=== PATIENT | female | born 2000 | race Two or more races ===

== ENCOUNTER → 2024-10-20 07:47 | Outpatient (BNVA) | payer OTHER, SELFPAY | PROVIDERS: Visit Provider Physician Assistant Surgical ==

== ENCOUNTER 2024-11-13 08:52 | Outpatient (AMB) | payer OTHER, SELFPAY ==
--- NOTE | 2024-11-13 08:04 | A.OFFVIS_ITS ---
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: Details: Start time: 8.00am, End time: 8.46am I spent 41 minutes speaking with the patient on the phone plus an additional 5 minutes reviewing and updating records for a total of 46 minutes HPI Comments Details: Previous weight loss efforts: Weight program in [place] with meds: zero WL, exercise Wakes up: 6.30am, Sleeps: 12.30am Breakfast: skips Lunch: 11.30am (avocado toast, bagel sandwich, eggs) Dinner: 7.30pm (Chipottle bowls, chicken, potatoes) Snacks: none Exercise: Gym x5/wk: aerobics Fluids: Coffee: (1-2 cups/d with creamer and sugar), Hot Tea: (16oz/d, plain), soda: none, juice: none, ETOH: 2/mth (2 drinks) PFSH Medical History (Updated 11/13/24 @ 08:29 by Kei Christian MD) Hypertension Back pain GERD (gastroesophageal reflux disease) Surgical History (Updated 10/20/24 @ 08:25 by Sindi Sims CMA) No history of previous surgery Family History (Updated 10/20/24 @ 08:31 by Sindi Sims CMA) Mother No problems noted. Social History (Updated 10/20/24 @ 08:31 by Sindi Sims CMA) Alcohol intake: current Alcohol intake frequency: holidays/special occasions only Patient Tobacco Use Status: Never used Tobacco Telehealth Telehealth Telehealth Platform: Telephone Location of provider rendering services: practice address Location of patient: address on file Patient Identification confirmed using: Name, : Yes Telehealth method: voice only Patient verbally consented to treatment: Yes Patient verbally consented to billing insurance company: Yes Patient informed of any privacy concerns related to visit: Yes Minutes spent on Phone/Video with Pt.: 46 Assessment & Plan Assessment & Plan (1) Obesity: Code(s): E66.9 - Obesity, unspecified Category: Medical Qualifiers: Obesity type: due to excess calories Obesity classification: adult class 2 (BMI 35 - 39.9) Serious obesity comorbidity presence: with serious comorbidity Body mass index: BMI 38.0-38.9 Qualified Code(s): E66.812 - Obesity, class 2; E66.01 - Morbid (severe) obesity due to excess calories; Z68.38 - Body mass index [BMI] 38.0-38.9, adult Plan: 1. Plan for lap sleeve gastrectomy. If diaphragmatic or ventral hernias are present at time of surgery, these will be repaired laparoscopically as well. I emphasized the importance of close follow-up, adherence to instructions and good communication. The surgery does not replace the need to change your lifestlyle which is the cause of the obesity problem. The surgery provides the motivation to try again to change your lifestyle, it reduces the appetite and make the transition to a better lifestyle easier and doubles the amount of weight you would lose compared to doing the lifestyle change without the surgery. You will need to be on a liquid diet with protein shakes for 2 weeks before surgery to maximize weight loss and boost your nutritional status to recover better from surgery and also for the first two weeks after surgery to let the stomach heal before we introduce other foods. After the first 2 weeks we will introduce protein bars and soft foods like scrambled eggs, cottage cheese and yogurt and after the 6th week will introduce meat, fish and cooked vegetables in small amounts. Over time you should be able to eat everything in small amounts. Side effects like nausea, vomiting, heartburn or abdominal pain are not common in the practice unless you are not following in the practice. This operation requires lifetime commitment to following in our practice and communication with me. You will much less weight and experience side effects if you don?t communicate or not following in the practice. Complications are rare and in our practice is about 1/10 of the national average. However, you can develop bleeding that may require transfusion (hasn?t happened for year in the practice), you may from complications (we did not have any deaths in the practice) and infections. Infections are usually a result of breakdown in communication or not understanding or following directions correctly. They are difficult to treat, they can happen during the first 6 weeks, they may require to be in the hospital for weeks or even months, not being able to eat by mouth and you may have drains and surgeries to try and correct the issue. Other risks and complications include possible conversion to an open procedure, leaks, small bowel obstruction, blood clots, cardiac, or pulmonary complications, as senior care complications such as ulcers, insufficient weight loss and vitamin deficiencies. 2. You will receive a link of our software riley to generate an individualized nutritional and exercise plan specific for you. Please send me a screenshot of the plans you will generate Meal to include lean meat (beef, fish, pork, turkey, chicken), or prydeinig yogurt, or egg whites, or beans with a salad with olive oil and fruits (berries, pears, apples, kiwi). Avoid salt, breads, potatoes, rice, pasta, desserts. 3. If you choose shakes, each shake would be drunk slowly, like coffee in a period of 2 hours. 4. If you choose bars, cut each bar in 4 pieces and eat each piece in 30min to make each bar last 2 hours. 5. I emphasized the importance of measuring accurately the food portion and measure it when serving the food in plate 6. The meal portions include a specific number of forks of meat and salad. You always eat the meat portion but you can replace up to half of salad/vegetables portion with rice, potatoes or pasta, or a fruit if you like. The less you do it the better weight loss will be. 7. One full-size fork is what it can be scooped on the fork without falling aside and not what can be bit with the fork. Use regular forks like those you find in a typical restaurant. 8. Please buy the body composition scale we discussed and send me weight measurements as soon as possible and then once a week. Always include your diet and exercise plan. 9. The best choice would be to purchase a stationary bike, elliptical or treadmill at home that can track calories. Let me know if you do so I can give you an exercise plan. 10. It is important of avoiding and for at least 18 months postoperatively and has been discussed at the infosession. 11. Goal is to lose at least 1.5-2lbs per week 12. Goal to lose 10% of your weight before surgery, which is about 20lbs. Ultimate weight goal: 188lbs before surgery 13. Please follow the diet plan exactly without any change. If you don't like something about the plan or you feel hungry you need to communicate with me so I can help you revise the plan. You should not change the plan yourself. 14. To be scheduled for EGD on Wednesday11/28/24 due to the history of GERD. The possibility of biopsies was discussed. Patient needs to avoid use of NSAIDs and aspirin for 1 week prior to EGD. You must be on liquids only the day before your endoscopy. Risks of perforation and bleeding was discussed with the patient. This will be an outpatient procedure with IV sedation. Orders: Orders Insulin Today E66.9 - Obesity, unspecified, I10 - Essential (primary) hypertension, K21.9 - Gastro-esophageal reflux disease without esophagitis, Z68.38 - Body mass index [BMI] 38.0-38.9, adult Hemoglobin A1c Today E66.9 - Obesity, unspecified, I10 - Essential (primary) hypertension, K21.9 - Gastro-esophageal reflux disease without esophagitis, Z68.38 - Body mass index [BMI] 38.0-38.9, adult Complete Blood Count Auto Diff Today E66.9 - Obesity, unspecified, I10 - Essential (primary) hypertension, K21.9 - Gastro-esophageal reflux disease without esophagitis, Z68.38 - Body mass index [BMI] 38.0-38.9, adult Lipid Panel Today E66.9 - Obesity, unspecified, I10 - Essential (primary) hypertension, K21.9 - Gastro-esophageal reflux disease without esophagitis, Z68.38 - Body mass index [BMI] 38.0-38.9, adult C Reactive Protein Today E66.9 - Obesity, unspecified, I10 - Essential (primary) hypertension, K21.9 - Gastro-esophageal reflux disease without esophagitis, Z68.38 - Body mass index [BMI] 38.0-38.9, adult Vitamin B1 Today E66.9 - Obesity, unspecified, I10 - Essential (primary) hypertension, K21.9 - Gastro-esophageal reflux disease without esophagitis, Z68.38 - Body mass index [BMI] 38.0-38.9, adult Vitamin A Today E66.9 - Obesity, unspecified, I10 - Essential (primary) hypertension, K21.9 - Gastro-esophageal reflux disease without esophagitis, Z68.38 - Body mass index [BMI] 38.0-38.9, adult TSH reflex Free T4 Today E66.9 - Obesity, unspecified, I10 - Essential (primary) hypertension, K21.9 - Gastro-esophageal reflux disease without esophagitis, Z68.38 - Body mass index [BMI] 38.0-38.9, adult Ferritin Today E66.9 - Obesity, unspecified, I10 - Essential (primary) hypertension, K21.9 - Gastro-esophageal reflux disease without esophagitis, Z68.38 - Body mass index [BMI] 38.0-38.9, adult Vitamin D 25-OH Total Today E66.9 - Obesity, unspecified, I10 - Essential (primary) hypertension, K21.9 - Gastro-esophageal reflux disease without esophagitis, Z68.38 - Body mass index [BMI] 38.0-38.9, adult US abdomen comp w elastography Today E66.9 - Obesity, unspecified, I10 - Essential (primary) hypertension, K21.9 - Gastro-esophageal reflux disease without esophagitis, Z68.38 - Body mass index [BMI] 38.0-38.9, adult XR chest 2V Today E66.9 - Obesity, unspecified, I10 - Essential (primary) hypertension, K21.9 - Gastro-esophageal reflux disease without esophagitis, Z68.38 - Body mass index [BMI] 38.0-38.9, adult FL upper GI w air Today E66.9 - Obesity, unspecified, I10 - Essential (primary) hypertension, K21.9 - Gastro-esophageal reflux disease without esophagitis, Z68.38 - Body mass index [BMI] 38.0-38.9, adult H Pylori Breath Test Today E66.9 - Obesity, unspecified, I10 - Essential (primary) hypertension, K21.9 - Gastro-esophageal reflux disease without esophagitis, Z68.38 - Body mass index [BMI] 38.0-38.9, adult IRON PROFILE Today E66.9 - Obesity, unspecified, I10 - Essential (primary) hypertension, K21.9 - Gastro-esophageal reflux disease without esophagitis, Z68.38 - Body mass index [BMI] 38.0-38.9, adult Comprehensive Met. Panel Today E66.9 - Obesity, unspecified, I10 - Essential (primary) hypertension, K21.9 - Gastro-esophageal reflux disease without esophagitis, Z68.38 - Body mass index [BMI] 38.0-38.9, adult Vitamin B12 and Folate Today E66.9 - Obesity, unspecified, I10 - Essential (primary) hypertension, K21.9 - Gastro-esophageal reflux disease without esophagitis, Z68.38 - Body mass index [BMI] 38.0-38.9, adult Zinc Today E66.9 - Obesity, unspecified, I10 - Essential (primary) hypertension, K21.9 - Gastro-esophageal reflux disease without esophagitis, Z68.38 - Body mass index [BMI] 38.0-38.9, adult ECG 12 lead EKG Today E66.9 - Obesity, unspecified, I10 - Essential (primary) hypertension, K21.9 - Gastro-esophageal reflux disease without esophagitis, Z68.38 - Body mass index [BMI] 38.0-38.9, adult Referrals Behavioral Health Referral E66.9 - Obesity, unspecified, I10 - Essential (primary) hypertension, K21.9 - Gastro-esophageal reflux disease without esophagitis, Z68.38 - Body mass index [BMI] 38.0-38.9, adult Nutrition/Dietitian Referral E66.9 - Obesity, unspecified, I10 - Essential (primary) hypertension, K21.9 - Gastro-esophageal reflux disease without esophagitis, Z68.38 - Body mass index [BMI] 38.0-38.9, adult
[2024-11-13 08:11] VITALS: BMI 38.0
--- OUTSIDE RECORDS SUMMARY | 2024-11-13 09:11 | XMS_ITS | Clinical Summary ---
[facility] [address] [place] [address] Care Team Providers Care Rotary Driller Prospecting Name Role Phone Unavailable Primary Care Provider Unavailabl e Surgical History Surgery Date Site/Laterality Comments OTHER SURGICAL HISTORY PROCEDURE: DENIES PREVIOUS SURGERY Social History Tobacco Use Types Packs/Day Years Used Date Smoking Tobacco: Never Smokeless Tobacco: Never Alcohol Use Standard Drinks/Week Comments No 0 (1 standard drink = 0.6 oz pur e alcohol) Sex and Gender Information Value Date Recorded Sex Assigned at Not on file Gender Identity Not on file Sexual Orientation Not on file Obstetrics History Last Filed Vital Signs Vital Sign Reading Time Taken Comments Blood Pressure 117/79 12/23/2023 8:48 AM EDT Pulse 70 12/23/2023 8:48 AM EDT Temperature - - Respiratory Rate - - Oxygen Saturation - - Inhaled Oxygen Concentration - - Weight 85.7 kg (189 lb) 12/23/2023 8:48 AM EDT Height 162.6 cm (5' 4 ) 12/23/2023 8:48 AM EDT Body Mass Index 32.44 12/23/2023 8:48 AM EDT Plan of Treatment Health Maintenance Due Date Last Done Comments HPV Vaccines (1 - 3-dose series) 2013 DTaP,Tdap,and Td Vaccines (1 - Tdap) 2017 Hepatitis B Vaccines (1 of 3 - 19+ 3-dose series) 2017 Cervical Cancer Screening: P ap Smear 2019 Cholesterol Screening (Lipid Panel) 09/13/2022 Depression Screening 09/13/2022 HIV Screening 09/13/2022 Hepatitis C Screening 09/13/2022 Social Influencers of Health Screening 09/13/2022 COVID-19 Vaccine ( - 2023-2 5 season) 2024 Influenza Vaccine (#1) 2024 HIB Vaccines Aged Out No longer eligi ble based on patient's age to complete this topic Hepatitis A Vaccines Aged Out No long er eligible based on patient's age to complete this topic IPV Vaccines Aged Out No longer eligi ble based on patient's age to complete this topic MMR Vaccines Aged Out No longer eligi ble based on patient's age to complete this topic Meningococcal ACWY Vaccine Aged Out N o longer eligible based on patient's age to complete this topic Pneumococcal Vaccine: Pediat rics (0 to 5 Years) and At-Risk Patients (6 to 64 Years) Aged Out No longer eligible b ased on patient's age to complete this topic RSV Immunization Patients Un hu 20 months Aged Out No longer eligible b ased on patient's age to complete this topic Varicella Vaccines Aged Out No longer eligible based on patient's age to complete this topic
== END 2024-11-13 08:57 | disposition home or self-care (01) ==
LOC: HO.HBS 08:52
PROVIDERS: Visit Provider Surgery
DX: E66.812 Obesity, class 2 (principal); Z68.38 Body mass index [BMI] 38.0-38.9, adult
CPT/HCPCS: 98010

== ENCOUNTER → 2024-11-13 08:52 | Outpatient (BNVA) | payer SELFPAY | PROVIDERS: Visit Provider Surgery | DX: E66.9 Obesity, unspecified (principal); Z68.38 Body mass index [BMI] 38.0-38.9, adult; K21.9 Gastro-esophageal reflux disease without esophagitis; I10 Essential (primary) hypertension ==

== ENCOUNTER → 2024-11-22 13:11 | Outpatient (BNVA) | payer OTHER, SELFPAY | PROVIDERS: Visit Provider Counselor Mental Health ==

== ENCOUNTER → 2024-11-22 13:11 | Outpatient (AMB) | payer OTHER, SELFPAY ==
--- NOTE | 2024-11-22 13:05 | A.OFFWM_ITS ---
Intake Intake Visit Reasons: TV BH Intake Allergies No Known Allergies Allergy (Verified 11/13/24 08:04) ON LICENSE OF [facility] Medical History (Updated 11/13/24 @ 08:29 by Kei Christian MD) Hypertension Back pain GERD (gastroesophageal reflux disease) Surgical History (Updated 10/20/24 @ 08:25 by Sindi Sims CMA) No history of previous surgery Family History (Updated 10/20/24 @ 08:31 by Sindi Sims CMA) Mother No problems noted. Social History (Updated 10/20/24 @ 08:31 by Sindi Sims CMA) Alcohol intake: current Alcohol intake frequency: holidays/special occasions only Patient Tobacco Use Status: Never used Tobacco Behavioral Health Assessment Weight Management Therapy Therapy Notes Details The patient is a 24-year-old female presenting for a behavioral health assessment as part of the surgical weight loss program. She reports being referred to the program by her primary care provider (PCP) due to her interest in weight-loss surgery. The patient previously tried weight-loss medication for approximately six months but did not experience significant results. The patient has not been cleared yet and will return in about 2 weeks to continue the assessment. Presenting Concerns Referral Source WMP-Provider Precipitating Event Obesity Living Situation Current Living Situation Rent At risk of losing current housing? No Satisfied with current living situation? Yes Comments PT lives with partner and her dog. Food/Weight/Diet Expectations of change Initial goal to lose 10% of your weight before surgery, which is about 20 lbs. Ultimate weight goal: 188lbs before surgery Most recent weight as of today was 196Lbs PT wants to have bariatric surgery and would like to be at 130 lbs. PT is implementing the following: Current meal plan: a combination of shakes (2), bars (2) and 1 meal (6F/6F) Exercise plan: cardio exercise, 4 days at week, 400 calories eat day. History/Relationship with food Not a sweet person. PT reports her issues were that she skipped meals during the day, and we ate her 1 meal, she overeats and then would snack a lot in between dinner and bedtime. Around her period she would do ice cream. Example of meals before starting the program: Breakfast: skip Lunch: skip most days. When had lunch was took out a bagel with avocado, turkey mccauley, and rosenberg with water or seltzer. Dinner: homemade food. rice with chicken and avocado, and salads with protein. Snacks: Ice cream, chips, popcon chips. Drinks/Liquids: water, coffee with oat milk and sugar. History/Relationship with weight Never overweight in childhood. In the last 10 years, the patient's Lowest weight was 130Lbs and highest 205Lbs History/Relationship with dieting Weight management program in [place], where she did the weight-loss medication and exercise for 6 months. Strict-diets. Binge Eating Do you frequently eat large amounts of food in short periods of time, not feeling physically hungry? No Do you feel out of control when you eat a large amount of food in a short period of time? No Do you eat large amounts of food rapidly and typically alone? No Night Eating Do you wake up at least once during the night to eat? No If you wake up in the night, do you find that it is necessary to eat something in order to fall back asleep? No Do you have little or no appetite in the morning and feel very hungry in the evening, often overeating between dinner and when you go to bed? Yes Social History Family history and relationship PT is in a relationship 3 years ago, they live together. 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 None reported. Education Highest grade completed Bachelors degree. Preferred learning style Learn by doing and Visual Currently enrolled in educational program? Yes Interested in further educational program? 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 Would like to eventually become a travel nurse. Employment Employment Status [employer] (works as litigation paralegal.) and School (FT nursing school ) Assessment & Plan Assessment & Plan (1) Unspecified adjustment reaction: Code(s): F43.20 - Adjustment disorder, unspecified Plan The patient has not been cleared yet and will return in about 2 weeks to continue the assessment. A new PHQ-9 will be administered prior to completing the assessment. Next appointment: 12/07/2024 at 10am (Telehealth). Telehealth Telehealth Telehealth Platform: Booklr Location of provider rendering services: other Location of patient: other ([place], [place]) Patient Identification confirmed using: Name, : Yes Telehealth method: video Patient verbally consented to treatment: Yes Patient verbally consented to billing insurance company: Yes Patient informed of any privacy concerns related to visit: Yes Minutes spent on Phone/Video with Pt.: 50 Coding Level of Care Code New Pt Tele Psy Diag Eval (35022) Patient Type New Diagnoses Unspecified adjustment reaction F43.20 Time Spent (min) 50
--- OUTSIDE RECORDS SUMMARY | 2024-11-22 14:32 | XMS_ITS | Clinical Summary ---
[facility] [address] [place] [address] Care Team Providers Care Exhibit Builder Name Role Phone Unavailable Primary Care Provider Unavailabl e Surgical History Surgery Date Site/Laterality Comments OTHER SURGICAL HISTORY PROCEDURE: DENIES PREVIOUS SURGERY Social History Tobacco Use Types Packs/Day Years Used Date Smoking Tobacco: Never Smokeless Tobacco: Never Alcohol Use Standard Drinks/Week Comments No 0 (1 standard drink = 0.6 oz pur e alcohol) Comments Unknown Sex and Gender Information Value Date Recorded Sex Assigned at Not on file Legal Sex Female 2:16 AM EST Gender Identity Not on file Sexual Orientation [...] complete this topic RSV Immunization Patients Un uh 20 months Aged Out No longer eligible b ased on patient's age to complete this topic Varicella Vaccines Aged Out No longer eligible based on patient's age to complete this topic
== END ==
LOC: HO.HBST 13:11
PROVIDERS: Visit Provider Counselor Mental Health
DX: F43.20 Adjustment disorder, unspecified (principal)
CPT/HCPCS: 90791

== ENCOUNTER 2024-11-28 08:05 | Outpatient (REF) | payer OTHER, SELFPAY ==
--- NOTE | ~2024-11-28 | XR_ITS ---
EXAMINATION: XR CHEST CLINICAL INFORMATION: E66.9 - Obesity, unspecified COMPARISON: None available. TECHNIQUE: 2 views of the chest were obtained. FINDINGS: The cardiac, hilar, and mediastinal contours are normal. The lungs are clear bilaterally. There is no pneumothorax or pleural effusion. There is no focal osseous or soft tissue abnormality. XR/XR chest 2V IMPRESSION: Normal chest. Electronically signed by: Terrell Hollins MD 11/28/2024 11:03 AM JOSE R
--- OUTSIDE RECORDS SUMMARY | 2024-11-28 08:10 | XMS_ITS | Clinical Summary ---
[facility] Organization [facility] [address] [place] [address] Care Team Providers Care Coater Operator Name Role Phone Unavailable Primary Care Provider [...] patient's age to complete this topic Meningococcal B Vacine Aged Out No lo nger eligible based on patient's age to complete [...]
--- NOTE | 2024-11-28 08:15 | ECG_ITS ---
Test Reason : OBS Blood Pressure : */* mmHG Vent. Rate : 72 BPM Atrial Rate : 72 BPM P-R Int : 188 ms QRS Dur : 86 ms QT Int : 396 ms P-R-T Axes : 24 45 13 degrees QTcB Int : 433 ms Normal sinus rhythm Normal ECG No previous ECGs available Referred By: Kei Christian Electronically Signed By: TERRY LAUREN
[2024-11-28 08:23] LABS: MANUAL DIFF FLAG NO
[2024-11-28 08:49] LABS: Basophils Percent Auto 0.5 % (0-2); Eosinophils Absolute Auto 0.1 X10*3/uL (0.0-0.4); Eosinophils Percent Auto 1.3 % (0-4); Hematocrit 34.3 % (37.0-47.0); Hemoglobin 10.9 g/dl (12.0-16.0); Imm Gran Abs Auto 0.04 X10*3/uL (0.00-0.03); Imm Gran Pct Auto 0.5 % (0.0-0.4); Lymphocytes Absolute Auto 2.1 X10*3/uL (1.2-4.9); Lymphocytes Percent Auto 28.1 % (20-40); Mean Corpuscular HGB Conc 31.8 g/dl (31.0-35.0); Mean Corpuscular Hemoglobin 24.4 pg (27.0-33.0); Mean Corpuscular Volume 76.7 fL (80.0-98.0); Mean Platelet Volume 10.5 fL (9.4-12.3); Monocytes Absolute Auto 0.6 X10*3/uL (0.1-1.2); Monocytes Percent Auto 8.3 % (2-11); Neutrophils Absolute Auto 4.6 x10*3/uL (2.0-8.3); Neutrophils Percent Auto 61.3 % (45-73); Platelet Count 383 X10*3/uL (160-400); Red Blood Count 4.47 X10*6/uL (4.20-5.50); Red Cell Distribution Width 16.3 % (11.0-16.0); White Blood Count 7.5 X10*3/uL (4.8-10.8)
[2024-11-28 09:16] LABS: Estimated Average Glucose 117 mg/dL; Hemoglobin A1C 112.1111 umol/L; Hemoglobin A1c % 5.7 % (<6.0); Total Hemoglobin (HGBA1C) 2879.5784 umol/L
[2024-11-28 09:22] LABS: Alanine Aminotransferase 28 U/L (0-31); Albumin Level 3.9 g/dL (3.5-5.0); Alkaline Phosphatase 91 U/L (39-117); Anion Gap 12 (12-20); Aspartate Amino Transferase 23 U/L (5-31); Bilirubin Total 0.3 mg/dL (0.0-1.0); Blood Urea Nitrogen 12 mg/dL (9-16); C Reactive Protein 1.13 mg/dL (< or = 0.50); Calcium 9.2 mg/dL (8.4-10.2); Carbon Dioxide 22 mmol/L (22-29); Chloride 108 mmol/L (96-108); Cholesterol 162 mg/dL (<200); Estimated Glomerular Filt Rate > 60; Glucose Random 94 mg/dL (60-115); HDL Cholesterol 53 mg/dL (>40); Iron 44 mcg/dL (30-160); LDL Cholesterol Calculated 91 mg/dL (<100); Percent Iron Saturation 13 % (15-50); Potassium 4.2 mmol/L (3.3-5.1); Sodium 138 mmol/L (135-145); Total Iron Binding Capacity 347 mcg/dL (228-428); Total Protein 7.3 g/dL (6.5-8.0); Triglycerides 91 mg/dL (<150); Unsaturated Iron Binding 303 ug/dL
[2024-11-28 09:53] LABS: Ferritin 15 ng/mL (10-122); Folate 6.3 ng/mL (> or = 4.0); TSH reflex Free T4 1.71 uIU/mL (0.32-4.0); Vitamin B12 316 pg/mL (200-900); Vitamin D 25-OH Total 15.8 ng/mL (>30)
[2024-11-28 10:27] LABS: Insulin 8 uU/mL (2-29)
[2024-11-30 21:33] LABS: Zinc 64 mcg/dL (60-130)
[2024-12-01 17:48] LABS: Vitamin A 41 mcg/dL (38-98)
[2024-12-03 14:09] LABS: Vitamin B1 7 nmol/L (8-30)
== END 2024-11-28 08:06 | disposition home or self-care (01) ==
LOC: HO.LAB 08:05
PROVIDERS: Visit Provider Surgery
DX: E66.9 Obesity, unspecified (principal); Z68.38 Body mass index [BMI] 38.0-38.9, adult; K21.9 Gastro-esophageal reflux disease without esophagitis; I10 Essential (primary) hypertension
CPT/HCPCS: 36415; 71046; 80053; 80061; 82306; 82607; 82728; 82746; 83036; 83525; 83540; 84425; 84443; 84590; 84630; 85025; 86140; 93005

== ENCOUNTER → 2024-11-28 08:15 | Outpatient (BNV) | payer OTHER, SELFPAY | PROVIDERS: Visit Provider Internal Medicine | DX: E66.01 Morbid (severe) obesity due to excess calories (principal); Z68.38 Body mass index [BMI] 38.0-38.9, adult | CPT/HCPCS: 93010 ==

== ENCOUNTER → 2024-11-28 08:31 | Outpatient (BNV) | payer OTHER, SELFPAY | PROVIDERS: Visit Provider Radiology Diagnostic Radiology | DX: E66.9 Obesity, unspecified (principal) | CPT/HCPCS: 71046 ==

== ENCOUNTER 2024-11-28 08:47 | Day surgery (SDC) | payer OTHER, SELFPAY ==
[2024-11-23 13:21] VITALS: BMI 38.0
--- NOTE | 2024-11-23 14:18 | HO.ANESPROP2 ---
Documented by User: Emiliana Ortiz NP 11/23/24 14:18 HPI - Anesthesia Eval Consult details Narrative: 24yo F for Upper Endoscopy PMFSH Active Problems Active Problems: All Active Problems Hypertension (Acute) Back pain (Acute) GERD (gastroesophageal reflux disease) (Acute) BMI 38.0-38.9,adult (Acute) Obesity (Acute) Past Medical History Medical History Encounter for biopsy Hypertension Back pain GERD (gastroesophageal reflux disease) Family History Family History Mother No problems noted. Surgical History Surgical History No history of previous surgery Social History Social History Alcohol intake: current Alcohol intake frequency: holidays/special occasions only Patient Tobacco Use Status: Never used Tobacco Use of substances other than those prescribed or required for medical reasons: No Are you DNR?: No Advance Directives: No Advance Directives Information Provided: Yes Nutrition Risks: No Nutritional Risk Meds Allergies Allergy/AdvReac Type Severity Reaction Status Date / Time No Known Allergies Allergy Verified 11/13/24 08:04 Home Medications ?Medication ?Instructions ?Recorded ?Confirmed ?Last Taken ?Type No Known Home Meds 10/20/24 11/28/24 Unknown History Exam Height,Weight and Vital Signs: Height 5 ft 1 in Weight 91.172 kg Assessment and Plan Assessment Anesthesia Assessment: Chart Reviewed Documented by User: Marci Plaza MD 11/28/24 13:49 PMFSH Past Medical History Medical History Encounter for biopsy Hypertension Back pain GERD (gastroesophageal reflux disease) Family History Family History Mother No problems noted. Family history of problems with anesthesia: No Surgical History Surgical History No history of previous surgery History of Problems with Anesthesia: No Social History Social History Alcohol intake: current Alcohol intake frequency: holidays/special occasions only Patient Tobacco Use Status: Never used Tobacco Use of substances other than those prescribed or required for medical reasons: No Are you DNR?: No Advance Directives: No Advance Directives Information Provided: Yes Nutrition Risks: No Nutritional Risk Meds Allergies Allergy/AdvReac Type Severity Reaction Status Date / Time No Known Allergies Allergy Verified 11/13/24 08:04 Home Medications ?Medication ?Instructions ?Recorded ?Confirmed ?Last Taken ?Type No Known Home Meds 10/20/24 11/28/24 Unknown History Exam Airway Mallampati Class: II TM Dist: >3cm Neck ROM: Full Heart: rrr Lungs: cta Assessment and Plan Assessment Anesthesia Assessment: Anesthesia Plan Discussed Final Anesthetic Review Family History of Problems with Anesthesia: No History of Problems with Anesthesia: No NPO: Yes ASA Class: II Final Preanesthetic Review: No Changes in Pt Med Stat, Meds/Allgs Chart Reviewed, Consent Obtained/Reviewed and Anes Risks/Benef Reviewed Patient Risk: Intermediate Procedure Risk: Low Anesthetic Plan Anesthetic Plan: MAC: Disposition: Standard PACU
[2024-11-28 09:42] LABS: UPreg QC Valid YES; Urine Pregnancy NEGATIVE (NEGATIVE)
[2024-11-28 09:45] VITALS: BMI 37.3
[2024-11-28] MEDS: Lactated Ringers 1,000 ML 80 ML IVCONT (10:21)
[2024-11-28] MEDS: Lactated Ringers 1,000 ML 100 ML IVCONT (13:21)
--- NOTE | 2024-11-28 13:28 | MHC.SHP ---
Pre-Procedural Eval Section A - 24 Hr Update-Section A only Date of Service: 11/28/24 The patient is an INPATIENT: No The patient has been examined within 24 hours of the surgical procedure. The History & Physical has been completed within 30 days and I have reviewed it.: Yes Section B - Complete if H&P > 30 days Chief Complaint: Morbid (severe) obesity due to excess calories Details of Present Illness: GERD Relevant Family History (Specify if Yes): No Relevant Social History: None Present Medications: None Medical History: No relevant PMH History of Previous Operations: No relevant previous surgery Allergies: Allergies Allergy/AdvReac Type Severity Reaction Status Date / Time No Known Allergies Allergy Verified 11/13/24 08:04 Review of Systems Sugical H&P ROS: Negative: Constitution, Cardiovascular, Respiratory, Neurological, Psychiatric, Hem-Onc, Allergic/Immunologic, Gastrointestinal, Genitourinary, Musculoskeletal, Integumentary, Endocrine and Eyes/Ears/Nose/Throat Exam Surgical H&P Exam: Normal: HEENT, Normal: Heart, Normal: Lungs, Normal: Extremities, Normal: Abdomen, Normal: Skin and Normal: Neurological Plan Diagnosis/Plan: Unchanged (EGD to assess etiology of GERD. Risks of bleeding and perforation were discussed with the patient and she is in agreement with the plan.) I have reviewed the history and physical and performed a pertinent physical examination on my patient. No changes have occurred unless specified. Time Spent With Patient Time: Total time managing care of this patient today ____ minutes.
--- NOTE | 2024-11-28 13:51 | PM.OP ---
Brief Operative Note Date of Service: 11/28/24 Pre-op diagnosis: GERD Post-op diagnosis: same Procedure: PROCEDURE DATE: 11/28/2024 PREOPERATIVE DIAGNOSIS: GERD POSTOPERATIVE DIAGNOSIS: ?Same as above. 1) small hiatal hernia PROCEDURE: Jyrlfxxc-rjrevq-kvcqhpfzktyh with biopsies Surgeon: ?Joel Christian M.D.. Ph.D. Vocational Rehabilitation Teacher: None ? Anesthesia: IV sedation Estimated blood loss: ?Minimal FINDINGS AND PROCEDURE: ? OPERATIVE INDICATIONS: ?The patient is a 24 year old female known to me who is interested in bariatric surgery. The patient has GERD. Based on this information I recommended an upper endoscopy to evaluate the patient's symptoms. Risks and complications of the surgery were discussed with the patient in advance particularly the possibility of perforation or bleeding that may require surgical intervention. The patient understood the risks and was in agreement with the plan. ? PROCEDURE: After informed consent was obtained by the patient, the patient was ?transferred to the Operating Room and was placed in the supine position.? After successful induction of IV sedation, a mouth block was inserted and the patient was placed in the left lateral decubitus position. An upper endoscopy was performed next, the oropharynx and esophagus appeared within the normal limits. There was a small 1-2cm hiatal hernia. The z-line was smooth. Two biopsies were obtained from the distal esophagus 2-3 cm proximal to the GE junction and two additional biopsies from the GE junction. The stomach was entered and it appeared to be of normal size. There was no gastritis. There was no stricture or ulcer. A biopsy was obtained from the gastric fundus and the antrum. No significant bleeding was noted from any of the biopsy sites. Retroflexion of the scope confirmed the presence of a small diaphragmatic hernia. The scope was then advanced into the duodenum which appeared to be normal as well. At that point the duodenum ?and the stomach were decompressed and the scope was withdrawn from the patient's mouth. The patient extubated and was transferred in stable condition to the Recovery Room for further care. I was present and performed all steps of the procedure. There were no residents to assist with this case. Joel Christian M.D., Ph.D. Surgeon: Kei Christian MD Anesthesia: MAC Was an Vocational Rehabilitation Teacher used for this Procedure?: No Estimated blood loss (mL): 0 IV fluids (mL): 400 Urine output (mL): 0 (No Bay to record output) Pathology: other (1) antrum x1, 2) fundus x1, 3) GE junction x2, 4) distal esophagus x2) Condition: stable Disposition: PACU
[2024-11-28 14:25] VITALS: BP 122/67; PULSE 86; RESP 16; TEMP 36.2; O2SAT 100
[2024-11-28 14:30] VITALS: BP 132/78; PULSE 92; RESP 16; O2SAT 100
[2024-11-28 14:45] VITALS: BP 127/84; PULSE 80; PULSE 85; RESP 16; TEMP 36.4; O2SAT 97; O2SAT 98
== END 2024-11-28 15:06 | disposition home or self-care (01) ==
PROVIDERS: Nurse Practitioner; Visit Provider Surgery
PROC: 0DJ08ZZ Inspection of Upper Intestinal Tract, Via Natural or Artificial Opening Endoscopic (ICD-10-PCS; CPT 43235; principal; 2024-11-28 13:20)
DX: K21.9 Gastro-esophageal reflux disease without esophagitis (principal); E66.01 Morbid (severe) obesity due to excess calories; Z68.38 Body mass index [BMI] 38.0-38.9, adult; K44.9 Diaphragmatic hernia without obstruction or gangrene; I10 Essential (primary) hypertension; M54.9 Dorsalgia, unspecified
CPT/HCPCS: 43239; 81025; 88305; 88313; 88342; J2003; J2250; J2704

== ENCOUNTER → 2024-11-28 08:47 | Outpatient (BNV) | payer OTHER, SELFPAY | PROVIDERS: Visit Provider Surgery | DX: K44.9 Diaphragmatic hernia without obstruction or gangrene (principal) | CPT/HCPCS: 43239 ==

== ENCOUNTER 2024-12-07 10:13 | Outpatient (AMB) | payer OTHER, SELFPAY ==
--- NOTE | 2024-12-07 10:11 | MHC.WMTHER ---
Intake Intake Visit Reasons: VIDEO Intake Part 2 Allergies No Known Allergies Allergy (Verified 11/13/24 08:04) [facility], [facility] Medical History Encounter for biopsy Hypertension Back pain GERD (gastroesophageal reflux disease) Surgical History No history of previous surgery Family History Mother No problems noted. Social History Alcohol intake: current Alcohol intake frequency: holidays/special occasions only Patient Tobacco Use Status: Never used Tobacco Behavioral Health Assessment Weight Management Therapy Therapy Notes Details The patient is a 24-year-old female presenting for a behavioral health assessment as part of the surgical weight loss program. She was referred to the program by her primary care provider (PCP) due to her interest in weight-loss surgery. The patient previously tried weight-loss medication for about six months but did not experience significant results. The patient denies any history of mental health treatment or past hospitalizations/crises related to behavioral health. She also denies any current or past concerns regarding suicidal ideation (SI), self-harm, harm to others, or substance use. There is no evidence of stress or emotional eating, and scores from the Binge Eating Scale (BES) suggest a gsu-pr-zcbhelfa risk for binge eating behavior. Additionally, the patient's PHQ-9 scores show no active symptoms or concerns related to depression. The mental status exam is within normal limits, indicating that the patient?s functioning is not impaired. At this time, the patient is cleared from a behavioral health standpoint. Presenting Concerns Referral Source [facility]MP-Provider Reason for referral Completion of behavioral health assessment as part of process for weight-loss surgery. Precipitating Event Obesity Living Situation Current Living Situation Rent At risk of losing current housing? No Satisfied with current living situation? Yes Comments PT lives with partner and her dog. Food/Weight/Diet Expectations of change Initial goal to lose 10% of your weight before surgery, which is about 20 lbs. Ultimate weight goal: 188lbs before surgery Initial weight: 208Lbs Most recent weight as of 11/22/2024: 196 lbs Weight as of : 193Lbs PT wants to have bariatric surgery and would like to be at 130 lbs. PT is implementing the following: Current meal plan: a combination of shakes (2), bars (2) and 1 meal (6F/6F) Exercise plan: cardio exercise, 4 days a week, 400 calories eat day. History/Relationship with food Not a sweet person. PT reports her issues were that she skipped meals during the day, and we ate her 1 meal, she overeats and then would snack a lot in between dinner and bedtime. Around her period she would do ice cream. Example of meals before starting the program: Breakfast: skip Lunch: skip most days. When had lunch was took out a bagel with avocado, turkey mccauley, and rosenberg with water or seltzer. Dinner: homemade food. rice with chicken and avocado, and salads with protein. Snacks: Ice cream, chips, popcon chips. Drinks/Liquids: water, coffee with oat milk and sugar. History/Relationship with weight Never overweight in childhood. In the last 10 years, the patient's Lowest weight was 130Lbs and highest 205Lbs History/Relationship with dieting Weight management program in [place], where she did the weight-loss medication and exercise for 6 months. Strict-diets. Binge Eating Do you frequently eat large amounts of food in short periods of time, not feeling physically hungry? No Do you feel out of control when you eat a large amount of food in a short period of time? No Do you eat large amounts of food rapidly and typically alone? No Night Eating Do you wake up at least once during the night to eat? No If you wake up in the night, do you find that it is necessary to eat something in order to fall back asleep? No Do you have little or no appetite in the morning and feel very hungry in the evening, often overeating between dinner and when you go to bed? Yes Social History Family history and relationship PT is in a relationship 3 years ago, they live together. PT has a brother. Parents are alive, her mother raised her and step-father stepped in since she was 6 y/o. Her parents when she was a child. She hasn't had a relationship with him since she was around 4 years old. PT reports she is very family-oriented, she's very close to her mom and brother. 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 Very close to her brother. She has 2 best friends and another very close friend. Community support Good work-environment. Gnosticism/Spirituality Mormon. Cultural/Ethnic information . She was born in [place], been in [place] since 2004. Legal Involvement and History Current or historical involvement with the legal system? None reported. Education Highest grade completed Bachelors degree. Preferred learning style Learn by doing and Visual Currently enrolled in educational program? Yes Interested in further educational program? 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 Would like to eventually become a travel nurse. 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 No Meaningful activities Do her own nails, paint, and swimming at her pool on weekends. Financial Situation Describe current financial situation Comfortable Financial assistance? None Service Service? No Mental Health and Addiction Treatment Current/Past substance abuse? No Comments Alcohol: 1x week. 1-3 mixed drinks. Cigarettes/Tobacco: None. Cannabis/Edibles: None. Current/Past addictive behavior concerns? No Psychiatric history PT reports she has never been in therapy before, and denies ever being in crisis or inpatient for mental health. There is no history and/or current concern about SI/SA and self-harm or other harm. Medical and Physical Health Summary Additional Medical History not covered in history None ad Sexual History concerns None reported Physical exam in the last year? Yes (.) Pain Screening Current pain? No Pain in the last few months? Yes Comments due to back issues. Medications Is the patient compliant with medications? Yes Does the patient have Haq Guardian in place? Not applicable Does the patient use complimentary health approaches? No Trauma/Abuse History History of trauma? No Questionnaires PHQ-9 Over the last 2 weeks, how often have you been bothered by any of the following problems? 1. Little interest or pleasure in doing things: not at all 2. Feeling down, depressed, or hopeless: not at all 3. Trouble falling or staying asleep, or sleeping too much: several days (Trouble falling or staying asleep) 4. Feeling tired or having little energy: several days 5. Poor appetite or overeating: not at all 6. Feeling bad about yourself - or that you are a failure or have let yourself or your family down: not at all 7. Trouble concentrating on things, such as reading the newspaper or watching television: not at all 8. Moving or speaking so slowly that other people could have noticed. Or the opposite - being so fidgety or restless that you have been moving around a lot more than usual: not at all 9. Thoughts that you would be better off or of hurting yourself in some way: not at all Total score: 2 Depression Screening Interpretation: Negative (Initial PHQ-9 invalid as was answered incorrectly. ) Depression Screening Done: Yes 03219 - PHQ-9 Billing: Yes Source: Developed by Drs. Merrick Suresh, Donya Pike, Johann Levi and colleagues, with an educational marco antonio from [employer]. Binge Eating Scale Group 1 A. I don't feel self-conscious about my wt. or body size when I'm with others. B. I feel concerned about how I look to others, but it normally does not make me fell disappointed with myself C. I do get self-conscious about my appearance and wt. which makes me feel disappointed in myself. D. I feel very self-conscious about my wt. and frequently I feel intense shame and disgust for myself. I try to avoid social contacts because of my self-consciousness. Response Group 1: D Group 2 A. I don't have any difficulty eating slowly in the proper manner. B. Although I seem to gobble down foods, I don't end up feeling stuffed because of eating to much. C. At times, I tend to eat quickly and then, I feel uncomfortably full afterwards. D. I have the habit of bolting down my food, without really chewing it. When this happens I usually feel uncomfortably stuffed because I've eaten to much. Response Group 2: A Group 3 A. I feel capable to control my eating urges when I want to. B. I feel like I have failed to control my eating more than the average person. C. I feel utterly helpless when it comes to feeling in control of my eating urges. D. Because I feel so helpless about controlling my eating I have become very desperate about trying to get control. Response Group 3: B Group 4 A. I don't have the habit of eating when I'm bored. B. I sometimes eat when I'm bored, but often I'm able to get busy and get my mind off food. C. I have a regular habit of eating when I'm bored, but occasionally, I can use some other activity to get my mind off eating. D. I have a strong habit of eating when I'm bored. Nothing seems to help me breath the habit. Response Group 4: C Group 5 A. I'm usually physically hungry when I eat something. B. Occasionally, I eat something on impulse even though I really am not hungry. C. I have the regular habit of eating foods, that I might not really enjoy, to satisfy a hungry feeling even though physically, I don't need the food. D. Although I'm not physically hungry, I get a hungry feeling in my mouth that only seems to be satisfied when I eat a food, like sandwich, that fills my mouth. Sometimes, when I eat the food to satisfy my mouth hunger, I then spit the food out so I won't gain weight. Response Group 5: B Group 6 A. I don't feel any guilt or self-hate after I overeat. B. After I overeat, occasionally I feel guilt or self-hate. C. Almost all the time I experience strong guilt or self-hate after I overeat. Response Group 6: B Group 7 A. I don't lose total control of my eating when dieting even after periods when I overeat. B. Sometimes when I eat a forbidden food on a diet, I feel like I blew it and eat even more. C. Frequently, I have the habit of saying to myself, I've blown it now, why not go all the way, when I overeat on a diet. When that happens I eat more. D. I have a regular habit of starting a strict diets for myself but I break the diets by going on an eating binge. My life seems to be either a feast or famine. Response Group 7: D Group 8 A. I rarely eat so much food that I feel uncomfortably stuffed afterwards. B. Usually about once a month, I each such a quantity of food, I end up feeling very stuffed. C. I have regular periods during the month when I eat large amounts of food, either at mealtime or at snacks. D. I eat so much food that I regularly feel quite uncomfortable after eating and sometimes a bit nauseous. Response Group 8: B Group 9 A. My level of calorie intake does not go up very high or go down very low on a regular basis. B. Sometimes after I overeat, I will try to reduce my caloric intake to almost nothing to compensate for the excess calories I've eaten. C. I have a regular habit of overeating during the night. It seems that my routine is not to be hungry in the morning but overeat in the evening. D. In my adult years, I have had week-long periods where I practically starve myself. This follows periods when I overeat. It seems I live a life of either feast or famine. Response Group 9: C Group 10 A. I usually am able to stop eating when I want to. I know when enough is enough. B. Every so often, I experience a compulsion to eat which I can't seem to control. C. Frequently, I experience strong urges to eat which I seem unable to control, but at other times I can control my eating urges. D. I feel incapable of controlling urges to eat. I have a fear of not being able to stop eating voluntarily. Response Group 10: C Group 11 A. I don't have any problem stopping eating when I feel full. B. I usually can stop eating when I feel full but occasionally overeat leaving me feeling uncomfortably stuffed. C. I have a problem stopping eating once I start and usually I feel uncomfortably stuffed after I eat a meal. D. Because I have a problem not being able to stop eating when I want, I sometimes have to induce vomiting to relieve my stuffed feeling. Response Group 11: B Group 12 A. I seem to eat just as much when I'm with others, Family social gatherings as when I'm by myself. B. Sometimes, when I'm with other persons, I don't eat as much as I want to eat because I'm self-conscious about my eating. C. Frequently, I eat only a small amount of food when others are present, because I'm very embarrassed about my eating. D. I feel so ashamed about overeating that I pick times to overeat when I know no one will see me. I feel like a closet eater. Response Group 12: B Group 13 A. I eat three meals a day with only an occasional between meal snack. B. I eat 3 meals a day, but I also normally snack between meals. C. When I am snacking heavily, I get in the habit of skipping regular meals. D. There are regular periods when I seem to be continually eating, with no planned meals. Response Group 13: C Group 14 A. I don't think much about trying to control unwanted eating urges. B. At least some of the time, I feel my thoughts are pre-occupied with trying to control my eating urges. C. I feel that frequently I spend much time thinking about how much I ate or about trying not to eat anymore. D. It seems to me that most of my waking hours are pre-occupied by thoughts about eating or not eating. I feel like I'm constantly struggling not to eat. Response Group 14: C Group 15 A. I don't think about food a great deal. B. I have strong craving for food but they last only for brief periods of time. C. I have days when I can't seem to think about anything else but food. D. Most of my days seem to be pre-occupied with thoughts about food. I feel like I live to eat. Response Group 15: B Group 16 A. I usually know whether or not I'm physically hungry. I take the right portion of food to satisfy me. B. Occasionally, I feel uncertain about knowing whether or not I'm physically hungry. A these times it's hard to know how much food I should take to satisfy me. C. Even though I might know how many calories I should eat, I don't have any idea what is a normal amount of food for me. Response Group 16: B Binge Eating Score: 24 Score less than 17 Minimal Risk Score between 18-26 Moderate Risk Score between 27-46 High Risk Assessment & Plan Assessment & Plan (1) Unspecified adjustment reaction: Code(s): F43.20 - Adjustment disorder, unspecified Plan The patient has been cleared from a behavioral health standpoint and is ready for submission. She will return for follow-up support 1-3 weeks post-op. Next appointment: 1-3 weeks post-op. Telehealth Telehealth Telehealth Platform: [employer] Location of provider rendering services: other Location of patient: other ([place], [place]) Patient Identification confirmed using: Name, : Yes Telehealth method: video Patient verbally consented to treatment: Yes Patient verbally consented to billing insurance company: Yes Patient informed of any privacy concerns related to visit: Yes Minutes spent on Phone/Video with Pt.: 55 Coding Level of Care Code Established Pt Tele Psytx >53 mins ([id number]) Patient Type Established Diagnoses Unspecified adjustment reaction F43.20 Additional Codes PHQ-9 - 04313 - PHQ-9 Billing: Yes ([id number]) Time Spent (min) 55
--- OUTSIDE RECORDS SUMMARY | 2024-12-07 11:50 | XMS_ITS | Clinical Summary ---
Author Organization [facility] Address [address] [place] [address] Care Team Providers Care Graphic Art Sales Representative Name Role Phone Unavailable Primary Care Provider [...]
== END 2024-12-07 11:20 | disposition home or self-care (01) ==
LOC: HO.HBST 10:13
PROVIDERS: Visit Provider Counselor Mental Health
DX: F43.20 Adjustment disorder, unspecified (principal)
CPT/HCPCS: 90837

== ENCOUNTER → 2024-12-07 10:13 | Outpatient (BNVA) | payer OTHER, SELFPAY | PROVIDERS: Visit Provider Counselor Mental Health ==

== ENCOUNTER 2024-12-19 08:27 | Outpatient (REF) | payer OTHER, SELFPAY ==
--- NOTE | ~2024-12-19 | US_ITS ---
EXAMINATION: US ABDOMEN COMPLETE WITH LIVER ELASTOGRAPHY HISTORY: E66.9 - Obesity, unspecified TECHNIQUE: Real-time grayscale ultrasound imaging of the abdomen was performed and images were reviewed. COMPARISON: There are no prior studies for comparison. FINDINGS: Liver: The right lobe of the liver measures 15.0 cm in size. The left lobe of the liver measures 7.6 cm in size. The liver demonstrates increased echotexture, consistent with steatosis. No focal mass or intrahepatic biliary ductal dilatation is identified. There is normal hepatopedal flow in the portal vein. Ultrasound elastography of the liver was performed with 10 separate measurements of the liver parenchyma with the patient in the supine position. Measurements were obtained approximately 2 cm below John's capsule and perpendicular to the capsule. Images are of satisfactory quality. The median shear wave velocity is 1.69 m/s. The interquartile range/median (IQR/median) is 0.22. Gallbladder and biliary tree: The gallbladder is unremarkable, without evidence of calculi, wall thickening, or pericholecystic fluid. There is no sonographic Gray sign. The common bile duct is normal in caliber measuring 3 mm. Kidneys: The right kidney measures 10.1 cm in length. The left kidney measures 10.2 cm in length. The kidneys are unremarkable, without evidence of masses, hydronephrosis, or calculi. Pancreas: The pancreatic head, neck, and body are unremarkable. The pancreatic tail is obscured by bowel gas. Spleen: The spleen is normal in size and contour, measuring 8.8 cm in length. Abdominal aorta and inferior vena cava: The visualized portions of the abdominal aorta and inferior vena cava are normal in caliber. There is no free fluid in the abdomen. US/US abdomen comp w elastography IMPRESSION: Hepatic steatosis. The median shear wave velocity in the liver is 1.69 m/s, corresponding to a median liver stiffness of 8.85 kPa. The IQR/median value is 0.22. This is indicative of a poor quality data set, and the estimated liver stiffness may be unreliable. Findings are indicative of a low elastography value which rules out advanced chronic liver disease in asymptomatic patients. REFERENCE: Society of Radiologists in Ultrasound Liver Stiffness Thresholds (2020): LIVER STIFFNESS THRESHOLDS: *Shear wave velocity less than 1.3 m/s (Liver Stiffness equal or less than 5 kPa): High probability of being normal. *Shear wave velocity less than 1.7 m/s (Liver Stiffness less than 9 kPa): In the absence of other known clinical signs, rules out compensated advanced chronic liver disease. *Shear wave velocity between 1.7-2.1 m/s (Liver Stiffness 9-13 kPa): Suggestive of compensated advanced chronic liver disease but need further test for confirmation. *Shear wave velocity between 2.1-2.4 m/s (Liver Stiffness 13-17 kPa): Rules in compensated advanced chronic liver disease. *Shear wave velocity greater than 2.4 m/s (Liver Stiffness over 17 kPa): Suggestive of clinically significant portal hypertension. QUALITY OF DATA SET: *IQR/Median value equal or less than 0.15 implies a quality data set. *IQR/Median value over 0.15 implies a poor quality data set. SIGNIFICANT CHANGE FROM PRIOR EXAM: Significant change if liver stiffness measurement is 10% or greater from prior exam. OTHER CONSIDERATIONS: The stage of liver fibrosis may be overestimated in the setting of acute hepatitis, liver inflammation, elevated liver function tests, hepatic vascular congestion, obstructive cholestasis, non-fasting state, and infiltrative diseases such as amyloidosis and lymphoma. In some patients with NAFLD, the liver stiffness thresholds for compensated advanced chronic liver disease may be lower. In causes other than viral hepatitis and NAFLD, liver stiffness thresholds are not well established. Electronically signed by: Merrick Hernandez MD 12/19/2024 09:33 AM EDT
--- OUTSIDE RECORDS SUMMARY | 2024-12-19 09:09 | XMS_ITS | Clinical Summary ---
[facility] [address] [place] [address] Care Team Providers Care Aviation Ordnance Officer Name Role Phone Unavailable Primary Care Provider [...]
== END 2024-12-19 08:28 | disposition home or self-care (01) ==
LOC: HO.US 08:27
PROVIDERS: Visit Provider Surgery
DX: E66.9 Obesity, unspecified (principal); Z68.38 Body mass index [BMI] 38.0-38.9, adult; I10 Essential (primary) hypertension; K21.9 Gastro-esophageal reflux disease without esophagitis
CPT/HCPCS: 76700; 76981

== ENCOUNTER → 2024-12-19 08:28 | Outpatient (BNV) | payer OTHER, SELFPAY | PROVIDERS: Visit Provider Radiology Diagnostic Radiology | DX: K76.0 Fatty (change of) liver, not elsewhere classified (principal) | CPT/HCPCS: 76700 ==

== ENCOUNTER 2025-01-31 09:32 | Outpatient (REF) | payer OTHER, SELFPAY ==
--- NOTE | ~2025-01-31 | FL_ITS ---
EXAMINATION: XR FLUOROSCOPY UPPER GI WITH AIR CLINICAL INFORMATION: Obesity COMPARISON: None available. TECHNIQUE: Routine upper GI air contrast study was performed in upright and lying position. FINDINGS: Following oral administration of thick barium and effervescent granules is normal propagation bolus from the oral cavity through the pharynx, esophagus into stomach without any evidence of obstruction, narrowing or stricture. On placing patient in supine and prone lying there is mild gastroesophageal reflux without hiatal hernia. Otherwise the course, caliber and peristalsis of the stomach, duodenal bulb and sweep is normal. The mucosal pattern of esophagus, stomach and the duodenum is normal. FLUOROSCOPY TIME: 1 minute 40 seconds DOSE AREA PRODUCT: 1993 uGy-m2 (microgray-meter squared) FL/FL upper GI w air IMPRESSION: Mild gastroesophageal reflux without hiatal hernia. Rest of the upper GI exam appears unremarkable. Electronically signed by: Mychal Alejo MD 01/31/2025 10:20 AM EDT
--- OUTSIDE RECORDS SUMMARY | 2025-01-31 10:38 | XMS_ITS | Clinical Summary ---
Author Organization [facility] Address [address] [place] [address] Care Team Providers Care Feather Stitcher Name Role Phone Unavailable Primary Care Provider Unavailabl e Source Comments PLEASE NOTE, if this patient is a minor, it may be UNLAWFUL to discuss sensitive information that is contained in these records (such as FAMILY PLANNING, MENTAL HEALTH or SUBSTANCE ABUSE) with the minor patient's parent or other person without the patient's specific authorization.[facility] Encounters Date Type Department Care Team Description 12/28/2024 1:40 PM EDT Office Visit [facility] [address] [place] [phone] Keshav Todd DDS Pain, dental (Primary Dx) 12/22/2024 9:00 AM EDT Office Visit [facility] [address] [place] [phone] Ana Cano DDS Pain, dental (Primary Dx) from Last 3 Months Social History Tobacco Use Types Packs/Day Years Used Date Smoking Tobacco: Never Assessed Comments Unknown Sex and Gender Information Value Date Recorded Sex Assigned at Not on file Legal Sex Female 1:04 PM PDT Gender Identity Not on file Sexual Orientation Not on file Plan of Treatment Health Maintenance Due Date Last Done Comments Anxiety Screening 1998 HPV Screening 1998 Hepatitis C Screening 1998 Pap + HPV 1998 Tobacco Screening 1998 HIV Screening 2013 Imm-HPV (1 - 3-dose series) 2013 Relationship Safety Screening/Counseling 2013 Hypertension Screening (#1) 2016 Imm-DTaP/Tdap/Td (1 - Tdap) 2017 Imm-Hepatitis B (1 of 3 - 19+ 3-dose series) Cervical Cancer Screening 2019 Pap Smear 2019 Ulp-SQQLS-02 ( season) 2024 Imm-Influenza (#1) 2024 Alcohol and Drug Screen 10/11/2024 Depression Annual Screen 10/11/2024 Cervical Ablation/Cold-Knife Conization Discontinued Cervical Cryotherapy Discontinued Colposcopy Discontinued Endometrial Biopsy Discontinued Excision/Leep Discontinued HPV Genotyping Discontinued Vaginal Pap Discontinued Vulvoscopy Discontinued Procedures Procedure Name Priority Date/Time Associated Diagnosis Comments 18 EXTRACTION ERU TOOTH RQR REMV BONE &/SECTN TOOTH Routine 12/28/2024 1:40 PM EDT Pain, dental CASE PRESENTATION SUBS DTL & EXTENSIVE TX PLN Routine 12/28/2024 1:40 PM EDT Pain, dental 1 INTRAORAL - PERIAPICAL EACH ADD RADIOGRAPH IMAGE Routine 12/22/2024 9:00 AM EDT Pain, dental 18 LIMITED ORAL EVALUATION - PROBLEM FOCUSED Routine 12/22/2024 9:00 AM EDT Pain, dental CASE PRESENTATION SUBS DTL & EXTENSIVE TX PLN Routine 12/22/2024 9:00 AM EDT Pain, dental 18 ROOT CANAL - WISDOM (NO BILLABLE) Routine 12/22/2024 12:00 AM EDT 18 CROWN - PORCELAIN FUSED PREDOMINANTLY BASE METAL Routine 12/22/2024 12:00 AM EDT from Last 3 Months Insurance [place] DENTAL
--- OUTSIDE RECORDS SUMMARY | 2025-01-31 10:38 | XMS_ITS | Clinical Summary ---
[facility] Address [address] [place] [address] Care Team Providers Care Granulator Operator Name Role Phone Unavailable Primary Care [...] Cervical Cancer Screening: P ap Smear 2019 Depression Screening 09/13/2022 HIV Screening 09/13/2022 Hepatitis C Screening 09/13/2022 Social Influencers of Health Screening 09/13/2022 COVID-19 Vaccine ( - 2023-2 5 season) 2024 Influenza Vaccine (Season Ended) 2025 HIB Vaccines Aged Out No longer eligi [...] age to complete this topic Meningococcal B Vaccine Aged Out No l onger eligible based on patient's age to complete [...]
== END 2025-01-31 09:33 | disposition home or self-care (01) ==
LOC: HO.XRAY 09:32
PROVIDERS: Visit Provider Surgery
DX: E66.9 Obesity, unspecified (principal); Z68.38 Body mass index [BMI] 38.0-38.9, adult; K21.9 Gastro-esophageal reflux disease without esophagitis; I10 Essential (primary) hypertension
CPT/HCPCS: 74246

== ENCOUNTER → 2025-01-31 09:35 | Outpatient (BNV) | payer OTHER, SELFPAY | PROVIDERS: Visit Provider Radiology Diagnostic Radiology | DX: K21.9 Gastro-esophageal reflux disease without esophagitis (principal) | CPT/HCPCS: 74246 ==

== ENCOUNTER 2025-03-06 08:21 | Outpatient (AMB) | payer OTHER, SELFPAY ==
--- OUTSIDE RECORDS SUMMARY | 2025-03-06 08:31 | XMS_ITS | Clinical Summary ---
Author Organization [facility] Address [address] [place] [address] Care Team Providers Care Shrimp Peeling Machine Operator Name Role Phone Unavailable Primary Care [...] Description 12/28/2024 1:40 PM EDT Office Visit [facility] [address] [place] [phone] Keshav Todd DDS Pain, dental (Primary Dx) 12/22/2024 9:00 AM EDT Office Visit [facility] [address] [place] [phone] Ana Cano DDS Pain, dental (Primary Dx) [...] Cervical Cancer Screening 2019 Pap Smear 2019 Tiu-EDDFB-53 ( season) 2024 Imm-Influenza (#1) 2024 Alcohol [...]
--- NOTE | 2025-03-06 10:33 | MHC.OFFVISWM ---
VS Expanded 03/06/25 10:46 Height 5 ft 1 in Weight 191 lb 8 oz BMI 36.2 Body Fat % 48.8 Body Fat Mass 93.5 Fat Free Mass 98.1 Visceral Fat Rating 11 Body Water % 37.3 Body Water Mass 71.5 Basal Metabolic Rate/Score 1,444 Intake Visit Reasons: TV Pre Op LSG 03/20/25 Allergies No Known Allergies Allergy (Verified 03/06/25 10:33) Medication List - Last Reconciled 03/06/25 by Kei Christian MD cholecalciferol (vitamin D3) 125 mcg PO DAILY iron,carbonyl-vitamin C 65 mg iron- 125 mg (Vitron-C) 1 tab PO DAILY mecobalamin (vitamin B12) 1,000 mcg sublingual DAILY ondansetron 4 mg PO Q12H pantoprazole 40 mg PO DAILY polyethylene glycol 3350 17 grams PO DAILY sucralfate 10 mL PO BID thiamine HCl (vitamin B1) 100 mg PO DAILY HPI HPI TV Pre Op LSG 03/20/25: Details: Start time: 10.26am, End time: 10.56am ?I spent 25 minutes speaking with the patient on the phone plus an additional 5 minutes reviewing and updating records for a total of 30 minutes HPI Comments Details: Overall weight loss: 12.5lbs, or 6.2% TBWL Is doing 2 Premier protein shakes (1/2 scoop in almond milk), 2.5 KIND protein bars and one meal (6 forks of meat and 6 forks of salad) Exercise: Gym x4/wk doing treadmill for 430 calories PFSH Medical History Encounter for biopsy Hypertension Back pain GERD (gastroesophageal reflux disease) Surgical History No history of previous surgery Family History Mother No problems noted. Social History Alcohol intake: current Alcohol intake frequency: holidays/special occasions only Patient Tobacco Use Status: Never used Tobacco Telehealth Telehealth Telehealth Platform: Telephone Location of provider rendering services: practice address Location of patient: address on file Patient Identification confirmed using: Name, : Yes Telehealth method: voice only Patient verbally consented to treatment: Yes Patient verbally consented to billing insurance company: Yes Patient informed of any privacy concerns related to visit: Yes Minutes spent on Phone/Video with Pt.: 30 Assessment & Plan Assessment & Plan (1) Obesity: Code(s): E66.9 - Obesity, unspecified Category: Medical Qualifiers: Obesity type: due to excess calories Obesity classification: adult class 2 (BMI 35 - 39.9) Serious obesity comorbidity presence: with serious comorbidity Body mass index: BMI 38.0-38.9 Qualified Code(s): E66.812 - Obesity, class 2; E66.01 - Morbid (severe) obesity due to excess calories; Z68.38 - Body mass index [BMI] 38.0-38.9, adult Plan: 1. Plan for lap sleeve gastrectomy including upper GI endoscopy. All tests has been completed and reviewed and the patient is cleared for the surgery. ?If diaphragmatic or ventral hernias are present at time of surgery, these will be repaired laparoscopically as well. Risks and complications were discussed in detail including possible conversion to an open procedure, anastomotic leak, bleeding requiring transfusion, small bowel obstruction, , DVT and pulmonary embolism, cardiac, or pulmonary complications, as terminal make up operator complications such as anastomotic ulcer, insufficient weight loss and vitamin deficiencies. I emphasized the importance of close follow-up, adherence to instructions and good communication. So far she has proven to be an excellent communicator and very compliant with all our directions accomplishing a great weight loss. I believe that she is an excellent candidate and she is ready. 2. Preop prescriptions were provided and explained the purpose of each one. Need to be purchased preop. Start Pantoprazole now as you get it from the pharmacy, 1 pill per day. Sucralfate and Zofran are for after surgery as needed. 3. Bowel prep: please do 7 packets ?of Miralax mixing each one with a an 8oz glass of water, crystal light, gatorade zero, or propel ?on 03/18/25 and the same amount on 03/19/25. The Miralax you begin with one packet at a time in 8oz water or crystal light, gatorade zero, or propel ?as early in the day as you can and you do them back to back until you finish them. Continue the protein shakes during ?the bowel prep. 4. Needs to purchase 1oz medicine cups . 5. Needs to purchase Children's liquid Tylenol for postop pain control. 6. Avoid aspirin, motrin, Advil, Aleve, Meloxicam, Excedrin, Ibuprofen, Naproxyn. Tylenol is OK. 7. She needs to purchase the Celebrate multivitamins from the hospital's gift shop, chewable or pills whatever you prefer. 8. Will do basic preop blood work-up any day between Wednesday09/14/22 and Wednesday09/18/22 fasting for 12 hours and is scheduled to see the Anesthesiologist prior to the day of surgery. 9. Importance of adherence to postop folllow-up and recommendations was underscored and she understands that. 10. Stop food and bars as of tomorrow 03/07/25 and continue with 5 Premier protein shakes (ONE scoop EACH in 8oz almond milk) at 8am-10am, 11am-1pm, 2pm-4pm, 5pm-7pm and 7pm-9pm 11. No soups, broths or V8 12. The patient's?medical?history has been reviewed and they are considered low risk for post op DVT and therefore DVT prophylaxis is not considered necessary. Travel after surgery was reviewed. The patient has not disclosed any travel plans during the first 30 days after surgery and they have been advised that within the first 30 days after surgery any bus, plane, train or car travel over 2 hours in duration is contraindicated due to the possibility of developing blood clots from immobility. Any travel, needs to include periods of ambulation of 10 minutes in duration every 2 hours.? Patient was instructed to discuss any plans for travel during this period with their bariatric surgeon.? 13. Please take at the day of surgery the following medications: NONE 14. Stop any control pills and don't use them for one month after surgery 15. Absolutely no smoking or vaping, or marijuana until the surgery and for at least the first 4 weeks. Only nicotine patches are allowed. 16. Send me weight measurements tomorrow 03/07/25, on Wednesday03/13/25 and then on Wednesday03/20/25, the day of surgery before you go to the hospital. 17. Avoid any steroids by mouth for any reason. Let me know if someone prescribes them to you 18. These instructions supersede anything else you read in the handbook, anything you watched in videos or classes or you were told by any other provider. If there is any conflict, you follow the above instructions and nothing else. Orders: Orders Comprehensive Met. Panel Today E66.01 - Morbid (severe) obesity due to excess calories, E66.812 - Obesity, class 2, I10 - Essential (primary) hypertension, K21.9 - Gastro-esophageal reflux disease without esophagitis, Z68.38 - Body mass index [BMI] 38.0-38.9, adult Type and Screen Today E66.01 - Morbid (severe) obesity due to excess calories, E66.812 - Obesity, class 2, I10 - Essential (primary) hypertension, K21.9 - Gastro-esophageal reflux disease without esophagitis, Z68.38 - Body mass index [BMI] 38.0-38.9, adult C Reactive Protein Today E66.01 - Morbid (severe) obesity due to excess calories, E66.812 - Obesity, class 2, I10 - Essential (primary) hypertension, K21.9 - Gastro-esophageal reflux disease without esophagitis, Z68.38 - Body mass index [BMI] 38.0-38.9, adult Insulin Today E66.01 - Morbid (severe) obesity due to excess calories, E66.812 - Obesity, class 2, I10 - Essential (primary) hypertension, K21.9 - Gastro-esophageal reflux disease without esophagitis, Z68.38 - Body mass index [BMI] 38.0-38.9, adult TSH reflex Free T4 Today E66.01 - Morbid (severe) obesity due to excess calories, E66.812 - Obesity, class 2, I10 - Essential (primary) hypertension, K21.9 - Gastro-esophageal reflux disease without esophagitis, Z68.38 - Body mass index [BMI] 38.0-38.9, adult Prothrombin Time INR Today E66.01 - Morbid (severe) obesity due to excess calories, E66.812 - Obesity, class 2, I10 - Essential (primary) hypertension, K21.9 - Gastro-esophageal reflux disease without esophagitis, Z68.38 - Body mass index [BMI] 38.0-38.9, adult Hemoglobin A1c Today E66.01 - Morbid (severe) obesity due to excess calories, E66.812 - Obesity, class 2, I10 - Essential (primary) hypertension, K21.9 - Gastro-esophageal reflux disease without esophagitis, Z68.38 - Body mass index [BMI] 38.0-38.9, adult Lipid Panel Today E66.01 - Morbid (severe) obesity due to excess calories, E66.812 - Obesity, class 2, I10 - Essential (primary) hypertension, K21.9 - Gastro-esophageal reflux disease without esophagitis, Z68.38 - Body mass index [BMI] 38.0-38.9, adult Partial Thromboplastin Time Today E66.01 - Morbid (severe) obesity due to excess calories, E66.812 - Obesity, class 2, I10 - Essential (primary) hypertension, K21.9 - Gastro-esophageal reflux disease without esophagitis, Z68.38 - Body mass index [BMI] 38.0-38.9, adult Complete Blood Count Auto Diff Today E66.01 - Morbid (severe) obesity due to excess calories, E66.812 - Obesity, class 2, I10 - Essential (primary) hypertension, K21.9 - Gastro-esophageal reflux disease without esophagitis, Z68.38 - Body mass index [BMI] 38.0-38.9, adult Medications: New pantoprazole 40 mg PO DAILY 90 tabs 0RF K21.9 - Gastro-esophageal reflux disease without esophagitis sucralfate 10 mL PO BID 600 mL 2RF K21.9 - Gastro-esophageal reflux disease without esophagitis ondansetron Only take one every 12 hours as needed if you have nausea 4 mg PO Q12H 20 tabs 0RF nausea and vomiting K21.9 - Gastro-esophageal reflux disease without esophagitis polyethylene glycol 3350 Mix each measuring cup with 8oz of water, Crystal light, or Gatorade zero, or Propel and do 7 measuring cups on 03/18/25 and another 7 measuring cups on 03/19/25 17 grams PO DAILY 238 grams 0RF Z01.818 - Encounter for other preprocedural examination
[2025-03-06 10:46] VITALS: BMI 36.2
== END 2025-03-06 10:56 | disposition home or self-care (01) ==
LOC: HO.HBS 08:21
PROVIDERS: Visit Provider Surgery
DX: E66.812 Obesity, class 2 (principal); E66.01 Morbid (severe) obesity due to excess calories; Z68.38 Body mass index [BMI] 38.0-38.9, adult
CPT/HCPCS: 99214

== ENCOUNTER → 2025-03-06 08:21 | Outpatient (BNVA) | payer OTHER, SELFPAY | PROVIDERS: Visit Provider Surgery ==

== ENCOUNTER → 2025-03-15 07:42 | Outpatient (BNVA) | payer SELFPAY | PROVIDERS: Visit Provider Surgery ==

== ENCOUNTER 2025-03-20 07:50 | Day surgery (SDC) | payer OTHER, SELFPAY ==
--- OUTSIDE RECORDS SUMMARY | 2025-02-23 07:35 | XMS_ITS | Clinical Summary ---
[facility] Address [address] [place] [address] Care Team Providers Care Tube Wrapper Name Role Phone Unavailable Primary Care Provider [...]
[2025-03-12 13:17] VITALS: BMI 35.1
[2025-03-15 07:40] LABS: MANUAL DIFF FLAG NO
[2025-03-15 08:07] LABS: Basophils Percent Auto 0.4 % (0-2); Eosinophils Absolute Auto 0.1 X10*3/uL (0.0-0.4); Eosinophils Percent Auto 1.3 % (0-4); Hematocrit 36.7 % (37.0-47.0); Hemoglobin 11.7 g/dl (12.0-16.0); Imm Gran Abs Auto 0.06 X10*3/uL (0.00-0.03); Imm Gran Pct Auto 0.6 % (0.0-0.4); Lymphocytes Absolute Auto 1.8 X10*3/uL (1.2-4.9); Lymphocytes Percent Auto 18.7 % (20-40); Mean Corpuscular HGB Conc 31.9 g/dl (31.0-35.0); Mean Corpuscular Hemoglobin 24.5 pg (27.0-33.0); Mean Corpuscular Volume 76.8 fL (80.0-98.0); Monocytes Absolute Auto 0.8 X10*3/uL (0.1-1.2); Monocytes Percent Auto 8.3 % (2-11); Neutrophils Absolute Auto 6.7 x10*3/uL (2.0-8.3); Neutrophils Percent Auto 70.7 % (45-73); Platelet Count 367 X10*3/uL (160-400); Red Blood Count 4.78 X10*6/uL (4.20-5.50); Red Cell Distribution Width 17.3 % (11.0-16.0); White Blood Count 9.5 X10*3/uL (4.8-10.8)
[2025-03-15 08:22] LABS: Prothrombin Time 11.7 SEC (10.9-12.4)
[2025-03-15 08:24] LABS: Partial Thromboplastin Time 31.9 SEC (26.0-36.8)
[2025-03-15 08:31] LABS: Estimated Average Glucose 111 mg/dL; Hemoglobin A1c % 5.5 % (<6.0); Total Hemoglobin (HGBA1C) 3065.0532 umol/L
[2025-03-15 08:36] LABS: Alanine Aminotransferase 23 U/L (0-31); Albumin Level 4.3 g/dL (3.5-5.0); Alkaline Phosphatase 98 U/L (39-117); Anion Gap 10 (12-20); Aspartate Amino Transferase 22 U/L (5-31); Bilirubin Total 0.3 mg/dL (0.0-1.0); Blood Urea Nitrogen 17 mg/dL (9-16); C Reactive Protein 2.29 mg/dL (< or = 0.50); Calcium 9.7 mg/dL (8.4-10.2); Carbon Dioxide 25 mmol/L (22-29); Chloride 107 mmol/L (96-108); Cholesterol 145 mg/dL (<200); Creatinine Clr Calc Pharmacy 135.5; Estimated Glomerular Filt Rate > 60; Glucose Random 94 mg/dL (60-115); HDL Cholesterol 45 mg/dL (>40); LDL Cholesterol Calculated 84 mg/dL (<100); Potassium 4.1 mmol/L (3.3-5.1); Sodium 138 mmol/L (135-145); Total Protein 7.5 g/dL (6.5-8.0); Triglycerides 84 mg/dL (<150)
[2025-03-15 09:04] LABS: TSH reflex Free T4 1.29 uIU/mL (0.32-4.0)
[2025-03-15 09:50] LABS: Insulin 13 uU/mL (2-29)
--- NOTE | 2025-03-16 14:17 | HO.ANESPROP2 ---
Documented by User: Emiliana Ortiz NP 03/16/25 14:18 HPI - Anesthesia Eval Consult details Narrative: 24yo F for Gastrectomy Sleeve - EGD, possible diaphragmatic hernia, possible ventral hernia, possible open BMI 35 PMFSH Active Problems Active Problems: All Active Problems Vitamin B1 deficiency (Acute) Vitamin B12 deficiency (Acute) Vitamin D deficiency (Acute) Anemia (Acute) BMI 38.0-38.9,adult (Acute) Obesity (Acute) Hypertension (Acute) Back pain (Acute) GERD (gastroesophageal reflux disease) (Acute) Past Medical History Medical History History of headache Scoliosis Encounter for biopsy Hypertension Back pain GERD (gastroesophageal reflux disease) Family History Family History Mother No problems noted. Family history of problems with anesthesia: No Surgical History Surgical History History of esophagogastroduodenoscopy (EGD) No history of previous surgery History of Problems with Anesthesia: No Social History Social History Are you a primary progressive care unit registered nurse to a significant other at home: No Do you presently have visiting nurse or other home services: No Alcohol intake: current Alcohol intake frequency: a few times a month Patient Tobacco Use Status: Never used Tobacco Use of substances other than those prescribed or required for medical reasons: No Have you been hit, kicked, punched, or otherwise hurt by someone within the past year? If so, by whom?: No Are you DNR?: No Advance Directives: No Advance Directives Information Provided: Yes Advance Directives on File: No Patient : No : No Poor oral hygiene: Yes Meds Allergies Allergy/AdvReac Type Severity Reaction Status Date / Time No Known Allergies Allergy Verified 03/06/25 10:33 Exam Height,Weight and Vital Signs: Height 5 ft 1 in Weight 84.368 kg Pertinent Lab Results Pertinent Lab Results: Laboratory Tests 03/15/25 03/15/25 07:29 07:39 WBC 9.5 RBC 4.78 Hgb 11.7 L Hct 36.7 L MCV 76.8 L MCH 24.5 L MCHC 31.9 RDW 17.3 H Plt Count 367 MPV 11.0 Immature Gran % (Auto) 0.6 H Neut % (Auto) 70.7 Lymph % (Auto) 18.7 L Haywood % (Auto) 8.3 Eos % (Auto) 1.3 Baso % (Auto) 0.4 Lymph # (Auto) 1.8 [place]wood # (Auto) 0.8 Eos # (Auto) 0.1 Baso # (Auto) 0.0 Abs Immat Gran (auto) 0.06 H Absolute Neuts (auto) 6.7 Absolute Nucleated RBC 0.000 Nucleated RBC % (auto) 0.0 PT 11.7 INR 1.0 APTT 31.9 Sodium 138 Potassium 4.1 Chloride 107 Carbon Dioxide 25 Anion Gap 10 L BUN 17 H Creatinine 0.62 Estim Creat Clear Calc 135.5 Estimated GFR > 60 Random Glucose 94 Estimat Average Glucose 111 Hemoglobin A1c % 5.5 Insulin Level 13 Calcium 9.7 Total Bilirubin 0.3 AST 22 ALT 23 Alkaline Phosphatase 98 C-Reactive Protein 2.29 H Total Protein 7.5 Albumin 4.3 Triglycerides 84 Cholesterol 145 LDL Cholesterol, Calc 84 HDL Cholesterol 45 TSH 1.29 Blood Type O Positive Antibody Screen NEGATIVE Narrative Narrative: EKG 11/2024 Vent. Rate : 72 BPM Atrial Rate : 72 BPM P-R Int : 188 ms QRS Dur : 86 ms QT Int : 396 ms P-R-T Axes : 24 45 13 degrees QTcB Int : 433 ms Normal sinus rhythm Normal ECG No previous ECGs available Assessment and Plan Assessment Anesthesia Assessment: Chart Reviewed Final Anesthetic Review Family History of Problems with Anesthesia: No History of Problems with Anesthesia: No Documented by User: Nuvia Barriga MD 03/20/25 10:12 [facility] Past Medical History Medical History History of headache Scoliosis Encounter for biopsy Hypertension Back pain GERD (gastroesophageal reflux disease) Family History Family History Mother No problems noted. Surgical History Surgical History History of esophagogastroduodenoscopy (EGD) No history of previous surgery Social History Social History Are you a primary progressive care unit registered nurse to a significant other at home: No Do you presently have visiting nurse or other home services: No Alcohol intake: current Alcohol intake frequency: a few times a month Patient Tobacco Use Status: Never used Tobacco Use of substances other than those prescribed or required for medical reasons: No Have you been hit, kicked, punched, or otherwise hurt by someone within the past year? If so, by whom?: No Are you DNR?: No Advance Directives: No Advance Directives Information Provided: Yes Advance Directives on File: No Patient : No : No Poor oral hygiene: Yes Meds Allergies Allergy/AdvReac Type Severity Reaction Status Date / Time No Known Allergies Allergy Verified 03/06/25 10:33 Exam Airway Mallampati Class: II TM Dist: >3cm Neck ROM: Full Loose/Missing/Broken Teeth: No Heart: RRR Lungs: CTA Assessment and Plan Assessment Anesthesia Assessment: Anesthesia Plan Discussed Final Anesthetic Review NPO: Yes ASA Class: II Final Preanesthetic Review: Meds/Allgs Chart Reviewed, Consent Obtained/Reviewed and Anes Risks/Benef Reviewed Patient Risk: Low Procedure Risk: Intermediate Anesthetic Plan Anesthetic Plan: GA Disposition: Standard PACU
[2025-03-20] VITALS (16 sets, daily range): BP systolic 111–140; BP diastolic 62–87; PULSE 64–88; RESP 14–20; TEMP 36.2–36.9; O2SAT 97–100; BMI 34.5; BMI 37.0
[2025-03-20] MEDS: Lactated Ringers 1,000 ML 999 ML IV (09:14)
[2025-03-20] MEDS: Aprepitant 32 MG/4.4 ML VIAL IVPUSH (09:14)
[2025-03-20 09:18] LABS: HCG Quantitative < 2 mIU/mL
--- NOTE | 2025-03-20 10:07 | MHC.SHP ---
Pre-Procedural Eval Section A - 24 Hr Update-Section A only Date of Service: 03/20/25 The patient is an INPATIENT: No The patient has been examined within 24 hours of the surgical procedure. The History & Physical has been completed within 30 days and I have reviewed it.: Yes Section B - Complete if H&P > 30 days Chief Complaint: Obesity, unspecified Relevant Family History (Specify if Yes): No Relevant Social History: None Present Medications: None Medical History: No relevant PMH History of Previous Operations: No relevant previous surgery Allergies: Allergies Allergy/AdvReac Type Severity Reaction Status Date / Time No Known Allergies Allergy Verified 03/06/25 10:33 Review of Systems Sugical H&P ROS: Negative: Constitution, Cardiovascular, Respiratory, Neurological, Psychiatric, Hem-Onc, Allergic/Immunologic, Gastrointestinal, Genitourinary, Musculoskeletal, Integumentary, Endocrine and Eyes/Ears/Nose/Throat Exam Surgical H&P Exam: Normal: HEENT, Normal: Heart, Normal: Lungs, Normal: Extremities, Normal: Abdomen, Normal: Skin and Normal: Neurological Plan Diagnosis/Plan: Unchanged I have reviewed the history and physical and performed a pertinent physical examination on my patient. No changes have occurred unless specified. Time Spent With Patient Time: Total time managing care of this patient today ____ minutes.
--- NOTE | 2025-03-20 10:11 | PM.OP ---
Brief Operative Note Date of Service: 03/20/25 Pre-op diagnosis: Severe obesity with comorbidities (see below) Post-op diagnosis: same Procedure: INITIAL PATIENT BMI ON PRESENTATION AT OUR OFFICE: 38.1 kg/m2 LAST BMI BEFORE SURGERY: 35.5 kg/m2 COMORBIDITIES: GERD, back pain ?The patient presented to the Weight Management Program with significant obesity that was negatively impacting the patient's comorbidities as listed above.? The program is a phased program with a special focus on preoperative medical weight management to promote substantial weight loss and prepare the patients for the second phase of the program: bariatric surgery. The patient participated in an intensive weekly lifestyle ?intervention and exercise program during which the patient ?has lost between the initial office visit and the last preoperative visit 16 lbs, or 7.94%% of initial actual body weight. It was deemed appropriate for the patient to now have bariatric surgery. In light of the current Covid-19 pandemic and the well documented strong association of obesity and increased risk of worse outcomes if infected with Covid-19 (REFERENCES:https://pubmed.ncbi.nlm.nih.gov/02734245/,?https://pubmed.ncbi.nlm.nih.gov/41356803/), any delay in undergoing bariatric surgery may lead to the patient's worsening health condition and increased?risk of more severe Covid-19 disease if infected. In addition a recent?study from [facility] published in [employer] on 10/06/2021 ([email or web address]) found that, among patients with obesity, substantial weight loss achieved with surgery was associated with improved outcomes of COVID-19 infection. The findings suggest that obesity can be a modifiable risk factor for the severity of COVID-19 infection. In addition, the patient met the BMI-criteria for bariatric surgery based on the BMI on initial presentation. The patient should not be penalized for achieving such weight loss because ?it is not sustainable long-term without surgical intervention and it was achieved in preparation for bariatric surgery ?under my direction and based on my published research ([email or web address]).[email or web address] and?https://www.soard.org/article/[email or web address](01)[email or web address]-X/pdf) ?that a 10% preoperative weight loss improves long-term weight loss after surgery and reduces perioperative complications.? Insurance carriers such as [facility] have endorsed my recommendations ?and have included in their policies criteria to include a 10% preoperative weight loss requirement. PROCEDURE: Esophago-gastroscopy, laparoscopic repair of incarcerated diaphragmatic hernia, laparoscopic lysis of adhesions and laparoscopic gastropexy INDICATIONS: This is a 24 year-old female who was electively scheduled for laparoscopic, possibly open sleeve gastrectomy. The risks and complications of the procedure were discussed with the patient in advance, particularly the possibility of ; pulmonary embolism; staple line leak; bleeding; GERD; cardiac, pulmonary, or renal complications; as well as long-term problems such as insufficient weight loss, vitamin deficiency, strictures, or ulcers. The patient understood all the risks, and was in agreement to proceed with surgery. DESCRIPTION OF PROCEDURE: After informed consent was obtained from the patient, the patient was given preoperative antibiotics, and was transferred to the operating room. After successful induction of general anesthesia, pneumatic compression devices were placed on both lower extremities. An upper endoscopy was performed next. The oropharynx and esophagus appeared to be within normal limits. There was no diaphragmatic hernia present. The stomach was entered. Then after all fluid and air were suctioned and the stomach was fully decompressed, the scope was withdrawn and secured in the mid esophagus. The patient was then prepped and draped in the usual sterile manner, and abdominal access was established at the right upper quadrant with the Jeremy technique. A 12 mm blunt port was inserted, and the abdomen was insufflated with CO2 to a pressure of 15 mmHg. Under direct visualization, additional ports were placed, specifically two 5 mm Versi-step ports to the left upper quadrant, and a 5 mm Versi-Step port to the right upper quadrant. 1% lidocaine plain was used to infiltrate all port sites as well as all fascia defects. There were adhesions in the abdomen involving the omentum and the left anterior abdominal wall. Those were lysed completely with the ultrasonic device. Following that, the patient was placed in a steep reverse Trendelenburg position. An additional 5 mm port was placed to the right flank for the Mediflex retractor that was used to retract the left lobe of the liver. The gastro-esophageal fat pad was opened with the ultrasonic device (Thunderbeat, Olympus) and the anterior esophagus and hiatus were exposed. The angle of His was opened with the ultrasonic device the fundus of the stomach from any diaphragmatic and splenic attachments. I then opened the gastrocolic ligament between the transverse colon and the greater curvature of the stomach with the ultrasonic device to enter the lesser sac and facilitate the ligation of the short gastric vessels. I started at a mid-point along the greater curvature and using the Thunderbeat, all short gastric vessels were divided all the way to the angle of His until the left shae was completely dissected at its entirety. I then divided the gastro-colic ligament distally to a distance of about 3-4 cm proximal to the pylorus. The stomach was then divided transversely with two Endo CAROL-45 purple and three CAROL-60 articulating purple loads using the WiLinx stapler and loads. Every effort was made that the gastric sleeve had a tubular shape and an even caliber throughout. Once the sleeve resection was completed, the staple line of the gastric sleeve was reinforced with Hemoclips. The resected stomach was retrieved without difficulty from the Jeremy port. A gastropexy was then performed in order to prevent postoperative GERD and partial gastric volvulus. Several interrupted 2.0 Surgidac sutures were placed between the sleeve's staple line and the previously divided greater omentum and gastro-colic ligament using the Endo-Stitch device. ?An upper endoscopy was performed. There was no narrowing at the GE junction. The scope was easily advanced all the way to the pylorus which was clearly visualized. There was no narrowing anywhere and the sleeve's caliber was even throughout. The sleeve's staple line was inspected and there was no evidence of ischemia, bleeding or dehiscence. At that point the gastroscope was withdrawn from the patient?s mouth while we were decompressing the bowel and the stomach from any remaining air. I looked into the lesser sac to see how the sleeve was situating and it was situating well. There was no bleeding from the staple line, spleen, or short gastric vessels. The Mediflex retractor was removed, and the undersurface of the liver was inspected and there was no bleeding. The patient was placed in supine position. I closed the fascial defect of the 12 mm port site with a figure of eight #1 Polysorb suture. Then 30cc Ropivacaine plain with 10 mg of Dexamethasone were used to infiltrate the fascial closure as well as all skin incisions. At this point, the abdomen was deflated, all ports were removed under direct vision, and no bleeding was noted from any of the port sites. The skin incisions were irrigated with saline and were closed with 4-0 absorbable monofilament sutures. Steri-Strips and OpSites were used to cover all incisions. The patient was extubated and was transferred in stable condition to the recovery room for further care. I was present and performed all dangelo parts of the procedure. Mr. Alexandra was the assistant director of financial aid. There were no residents to assist with this case. Joel Christian MD, PhD, FACS Surgeon: Kei Christian MD Anesthesia: GETA, local and other (TAP block ) Was an Rd Manager used for this Procedure?: No Rd Manager: Lennox Alexandra Estimated blood loss (mL): 10 IV fluids (mL): 2,000 Urine output (mL): 0 (No Bay to record output) Pathology: other (1) Stomach, 2) Gastro-esophageal fat pad) Condition: stable Disposition: PACU
--- NOTE | 2025-03-20 10:14 | P.PNGS_ITS ---
Subjective Subjective Date of Service: 03/20/25 Interval history: Feels well. Mild incisional pain. She is tolerating phase 1 bariatric diet Physical Exam 2 Vital Signs: Vital Signs: Last Vital Signs Temp 97.3 F 03/20/25 09:05 Pulse 72 03/20/25 09:05 Resp 16 03/20/25 09:05 BP 111/66 03/20/25 09:05 Pulse Ox 100 03/20/25 09:05 O2 Del Method Room Air 03/20/25 09:05 BMI result Body Mass Index 34.5 GI: Inspection: Yes normal to inspection, Yes incision (clean, dry and intact) and Yes obesity Palpation (GI): Soft to palpation Extrem: Right lower extremity: normal to inspection (no calf tenderness) L eft lower extremity: normal to inspection (no calf tenderness) Objective Data Active Medications Albuterol/Ipratropium (Albuterol/Iprat 2.5/0.5mg 3 Ml Ampul.Neb) 3 ml INHALE ONCE PRN PRN Reason: Bronchospasm/wheezing Stop: 03/20/25 16:13 Fentanyl (Fentanyl Citrate/Pf 100 Mcg/2 Ml Vial) 50 mcg IVPUSH Q5M PRN PRN Reason: Pain, Moderate to Severe (Pain Scale 4-10) Stop: 03/20/25 16:12 Haloperidol Lactate (Haloperidol Lactate 5 Mg/Ml Vial) 1 mg IVPUSH ONCE PRN PRN Reason: intractable nausea Stop: 03/20/25 16:12 Hydromorphone HCl (Hydromorphone Hcl 0.5 Mg/0.5 Ml Syringe) 0.25 mg IVPUSH Q5M PRN PRN Reason: Pain, Moderate to Severe (Pain Scale 4-10) Stop: 03/20/25 16:12 Lactated Ringer's (Lr) 1,000 mls @ 100 mls/hr IVCONT .Q10H JEAN-PIERRE Stop: 03/20/25 11:44 Lactated Ringer's (Lr) 1,000 mls @ 999 mls/hr IV .Q1H1M JEAN-PIERRE Stop: 03/20/25 10:45 Last Admin: 03/20/25 09:14 Dose: 999 mls/hr Documented By: VALENTINA Naloxone HCl (Naloxone Hcl 0.4 Mg/Ml Vial) 0.04 mg IVPUSH Q5M PRN PRN Reason: Excessive sedation or RR < 8 Ondansetron HCl (Ondansetron Hcl 4 Mg/2 Ml Vial) 4 mg IVPUSH ONCE PRN PRN Reason: Nausea and Vomiting Stop: 03/20/25 16:12 Oxycodone HCl (Oxycodone Hcl Immed Release 5 Mg Tablet) 5 mg PO ONCE PRN PRN Reason: Pain, Moderate(Pain Scale 4-6) if no IV Access Stop: 03/20/25 16:12 Labs 03/15/25 07:39 03/15/25 07:39 Labs: Laboratory Results - last 24 hr 03/20/25 08:49 Beta HCG, Quant < 2 Procedures Date of Service Date of Service: 03/20/25 Progress Note: A&P Assessment and plan (1) Obesity: Status: Acute Assessment and Plan: s/p laparoscopic sleeve gastrectomy, lysis of adhesions and gastropexy Doing well Will check am labs and if OK the patient will be discharged home (2) BMI 35.0-35.9,adult: Status: Acute (3) GERD (gastroesophageal reflux disease): Status: Acute (4) Back pain: Status: Acute (5) S/P laparoscopic sleeve gastrectomy: Status: Acute (6) Intra-abdominal adhesions: Status: Acute Time Spent With Patient Time: Total time managing care of this patient today ____ minutes. Quality Stroke Does the patient have a stroke diagnosis?: No VTE Prior VTE?: No VTE Risk Level:: Surgical - moderate VTE Device Contraindication: N/A - Device Ordered VTE Drug Contraindication: Treatment Not Indicated
[2025-03-20] MEDS: ceFAZolin Sodium/Dextrose,Iso 2 GM/50 ML PIGGYBACK IV ×2 (10:25→17:18)
[2025-03-20] MEDS: Acetaminophen 1,000 MG/100 ML PIGGYBACK 400 MG IV (11:40)
--- NOTE | 2025-03-20 12:27 | PM.DS ---
DS: Providers Provider Date of Service: 03/21/25 Date of discharge: 03/21/25 Primary care physician: Unknown Physician DS: Diagnosis Discharge Diagnosis (1) Obesity: Status: Acute (2) BMI 35.0-35.9,adult: Status: Acute (3) GERD (gastroesophageal reflux disease): Status: Acute (4) Back pain: Status: Acute (5) S/P laparoscopic sleeve gastrectomy: Status: Acute (6) Intra-abdominal adhesions: Status: Acute DS: Summary Hospital Course Hospital Course: ADMITTING DIAGNOSIS: obesity, htn ? DISCHARGE DIAGNOSIS: same, s/p laparoscopic sleeve gastrectomy ? PAST SURGICAL HISTORY: none ? PROCEDURE: upper endoscopy, laparoscopic sleeve gastrectomy ? DISCHARGE SUMMARY: ? History of Present Illness: ? The patient is a?24 year-old woman with a BMI of?38 kg/m2 and associated co-morbidities as described above. The patient had extensive work-up,lost?16 lbs preoperatively and was electively scheduled for laparoscopic, possible open sleeve gastrectomy and gastropexy. Risks and complications of the surgery were discussed with the patient in advance, particularly the possibility of , pulmonary embolism, anastomotic leak, bleeding, bowel injury, GERD, cardiac, renal or pulmonary complications. The patient understood all the risks and was in agreement with the surgical plan. ? Hospital Course: ? The patient underwent an uneventful laparoscopic sleeve gastrectomy with gastropexy on the day of admission. Postoperatively, the patient was transferred to the surgical floor. The patient received IV Acetaminophen and IV dilaudid for pain control. Patient was started on bariatric phase 1 diet POD #0. On postoperative day one, the patient was feeling well without nausea, vomiting, fevers, or tachycardia. The patient had some mild incisional pain and the abdomen was soft. ? On the morning of postoperative day one, the patient was continued on 1 ounce of water or ice every half hour. During the day, the patient did fairly well, having some incisional pain, but able to ambulate adequately and to tolerate liquids well. ? Since the patient is doing well, we decided that the patient was ready to be discharged. The patient was given instructions to follow-up with me next week and to call my office for any fever over 101, persistent abdominal pain, nausea, vomiting, GERD, symptoms of DVT such as calf tenderness, or leg swelling, or pulmonary embolism such as chest pain or shortness of breath. The patient was also instructed to drink 40-60 ounces of liquids per day using the 1-ounce cups. The patient had been given prescriptions for Tylenol for pain, Zofran prn for nausea, and pantoprazole and carafate previously. The patient was encouraged to ambulate and use the incentive spirometer. The patient was allowed to shower, but no baths, and encouraged to stay active at home. All of these instructions were given to the patient personally. All questions were answered and the patient understood all instructions, the instructions were also given to the patient in print. Time Attestation Total time managing care of this patient today: 25 mintues. Discharge Coordination Time (in mins): 25 Quality: Safe Use of Opioids Does Pt have an Active Cancer Diagnosis on the Problem List?: No Quality: Stroke Does the patient have a stroke diagnosis?: No Physical Exam Vital Signs: Vital Signs: Last Vital Signs Temp 97.3 F 03/20/25 09:05 Pulse 72 03/20/25 09:05 Resp 16 03/20/25 09:05 BP 111/66 03/20/25 09:05 Pulse Ox 100 03/20/25 09:05 O2 Del Method Room Air 03/20/25 09:05 BMI result Body Mass Index 34.5 DS: Data Data Completed and Pending Pending studies at discharge: Pending at discharge 03/20/25 11:32 Surgical [PTH] Routine Labs on day of discharge: Laboratory Results - last 24 hr 03/20/25 08:49 Beta HCG, Quant < 2 Discharge Plan Discharge Patient Disposition: Home, Self-Care Referrals: Physician,Unknown J [Primary Care Provider] - 1 Week Discharge Medications: Continued Vitron-C 65 mg iron- 125 mg tablet,delayed release (DR/EC) 1 tab PO DAILY Qty: 90 0RF Rx Instructions: swallow whole; do not chew/break/dissolve/open cholecalciferol (vitamin D3) 125 mcg (5,000 unit) capsule 125 mcg PO DAILY Qty: 90 0RF mecobalamin (vitamin B12) 1,000 mcg tablet,disintegrating 1,000 mcg sublingual DAILY Qty: 90 0RF Rx Instructions: place tablet under tongue and allow to dissolve for at least30 secs before swallowing thiamine HCl (vitamin B1) 100 mg tablet 100 mg PO DAILY Qty: 90 0RF pantoprazole 40 mg tablet,delayed release (DR/EC) 40 mg PO DAILY Qty: 90 0RF sucralfate 100 mg/mL suspension 10 ml PO BID Qty: 600 2RF ondansetron 4 mg tablet,disintegrating 4 mg PO Q12H Qty: 20 0RF Rx Instructions: Only take one every 12 hours as needed if you have nausea Discharge Orders: Discharge Order (Routine); Ordered 03/21/25 Ordered By: Lennox Alexandra Activity on Discharge: No heavy lifting Activity Restrictions/Additional Instructions: No tub baths, sex or returning to work until discussed at first post op appointment. No exercise, alcohol, tobacco or illegal drug use. Continue to use incentive spirometer hourly while awake. Walk in home for 5- 10 minutes every 2 hours during the first week. Follow all instructions in the bariatric handbook and call with any questions.Discharge Instructions 1. Please call your doctor or come back to the emergency room should any new symptoms arise. 2. You will receive a courtesy call from [facility] 24-48 hours after discharge. 3. Activity: abstain from alcohol, practice limited stair climbing, no bending, no driving, no exercise, no illicit substances, no lifting, no sex, no tub bath, no work. 4. Diet: continue as discussed with Dr. Christian. 5. Dressing Change/Wound Care: Your incision is covered by clear bandages and guaze underneath. If the area is tender, you may apply an ice pack for short intervals (no more than 20 minutes on, followed by at least 20 minutes off). Do not apply heat. Do not use creams, lotions, or topical antibiotics unless instructed to do so by your surgeon. These can cause infection or allergic reaction. 6. Call your doctor if: - Your temperature exceeds 101.5 F - You experience excessive pain or swelling - You have an unexpected reaction to medication - You have excessive bleeding - You experience continued vomiting/nausea - Your incision begins to separate - Your incision shows signs of infection such as increased redness, swelling, excessive pain, heat, or drainage (light blood or clear fluid is normal) 7. General instructions: No lifting greater than 5 lbs for 1 week and not more than 20lbs the next 3?weeks. No driving until seen at the office in 5-7 days after surgery. If you do not move your bowels in the next 2 days, please tell?Dr. Christian. Please walk around your home every hour or two to prevent blood clots from forming in your legs. You do not need to wake from sleeping to walk. Please sleep in a bed or couch to prevent kinking at the hips and knees. Please take your incentive spirometer (your lung dish maker) home with you and use it for the next few days to prevent pneumonia. You may shower, no hot tubs, baths or swimming pools.?Please follow the post op diet instructions you are?given by Dr Christian? and text me daily at 5-6pm for an update.?If you have any issues or concerns or questions please communicate this to him via text.? The Celebrate shakes have all of the bariatric vitamins you need if you consume these shakes. If you are drinking other protein shakes, you will need to purchase the Celebrate multivitamins and calcium that are available in the hospital gift shop on the first floor of the [facility].??Do not take anything without first discussing with Dr Christian. Please make sure you are consuming at least 40 ounces of fluids per day starting the?day AFTER your discharge from the hospital. Always drink 1-2 ml per minute using the 5ml?syringe. If you drink faster you may experience?bloating,?gas pain, burping, nausea or heartburn. In that case please slow down your pace and use the syringe to?understand better the?proper?pace and volume of drinking. Do not hesitate to contact the office with any questions at . The patient's medical history has been reviewed and they are considered low risk for post op DVT and therefore DVT prophylaxis is not considered necessary. Travel after surgery was reviewed. The patient has not disclosed any travel plans during the first 30 days after surgery and they have been advised that within the first 30 days after surgery any bus, plane, train or car travel over 2 hours in duration is contraindicated due to the possibility of developing blood clots from immobility. Any travel, needs to include periods of ambulation of 10 minutes in duration every 2 hours.? The patient was instructed to discuss any plans for travel during this period with their bariatric surgeon. Print Language: Mongolian
[2025-03-20] MEDS: ondansetron HCL 4 MG/2 ML VIAL IVPUSH (12:50)
[2025-03-20 13:09] LABS: Hemoglobin 10.4 g/dl (12.0-16.0)
[2025-03-20 13:26] LABS: Anion Gap 14 (12-20); Blood Urea Nitrogen 14 mg/dL (9-16); Carbon Dioxide 23 mmol/L (22-29); Chloride 107 mmol/L (96-108); Creatinine Clr Calc Pharmacy 129.9; Estimated Glomerular Filt Rate > 60; Glucose Random 179 mg/dL (60-115); Potassium 3.5 mmol/L (3.3-5.1); Sodium 140 mmol/L (135-145)
[2025-03-20] MEDS: Haloperidol Lactate 5 MG/ML VIAL 1 MG IVPUSH (13:26)
[2025-03-20] MEDS: HYDROmorphone HCl 0.5 MG/0.5 ML SYRINGE 0.25 MG IVPUSH ×3 (13:26→20:38)
--- NOTE | 2025-03-20 15:07 | PHA.MEDREC ---
Pharmacy Consult ? Medication Reconciliation Pharmacy has completed the medication reconciliation. revie
--- NOTE | 2025-03-20 15:08 | PHA.MEDREC ---
Addendum entered by Lennox Chavez RPh 03/20/25 15:09: med rec reviewed Original Note: Pharmacy Consult ? Medication Reconciliation Pharmacy has reviewed the medication reconciliation done by nursing. Claims match med rec.
[2025-03-20] MEDS: Lactated Ringers 1,000 ML 100 ML IVCONT (15:55)
[2025-03-20] MEDS: Metoclopramide HCl 10 MG/2 ML VIAL IVPUSH (17:34)
[2025-03-20] MEDS: Acetaminophen 1,000 MG/100 ML PIGGYBACK 16.7 MG IV ×2 (17:37→22:47)
[2025-03-21] MEDS: Lactated Ringers 1,000 ML 100 ML IVCONT (01:16)
[2025-03-21 03:04] VITALS: BP 114/69; PULSE 86; RESP 16; TEMP 36.5; O2SAT 98
[2025-03-21] MEDS: Acetaminophen 1,000 MG/100 ML PIGGYBACK 16.7 MG IV (04:37)
[2025-03-21] MEDS: Pantoprazole Sodium 40 MG/10 ML VIAL IVPUSH (05:47)
[2025-03-21 05:50] LABS: MANUAL DIFF FLAG NO
[2025-03-21 06:00] LABS: Basophils Percent Auto 0.1 % (0-2); Hematocrit 30.2 % (37.0-47.0); Hemoglobin 9.9 g/dl (12.0-16.0); Imm Gran Abs Auto 0.09 X10*3/uL (0.00-0.03); Imm Gran Pct Auto 0.5 % (0.0-0.4); Lymphocytes Percent Auto 5.9 % (20-40); Mean Corpuscular HGB Conc 32.8 g/dl (31.0-35.0); Mean Corpuscular Volume 76.3 fL (80.0-98.0); Mean Platelet Volume 11.9 fL (9.4-12.3); Monocytes Absolute Auto 0.9 X10*3/uL (0.1-1.2); Monocytes Percent Auto 5.5 % (2-11); Neutrophils Absolute Auto 14.8 x10*3/uL (2.0-8.3); Platelet Count 315 X10*3/uL (160-400); Red Blood Count 3.96 X10*6/uL (4.20-5.50); Red Cell Distribution Width 17.1 % (11.0-16.0); White Blood Count 16.8 X10*3/uL (4.8-10.8)
[2025-03-21 06:27] LABS: Anion Gap 10 (12-20); Blood Urea Nitrogen 7 mg/dL (9-16); Calcium 9.3 mg/dL (8.4-10.2); Carbon Dioxide 24 mmol/L (22-29); Chloride 108 mmol/L (96-108); Creatinine Clr Calc Pharmacy 166.1; Estimated Glomerular Filt Rate > 60; Glucose Random 107 mg/dL (60-115); Potassium 4.3 mmol/L (3.3-5.1); Sodium 138 mmol/L (135-145)
[2025-03-21 07:47] VITALS: BP 121/68; PULSE 80; RESP 16; TEMP 36.2; O2SAT 100
--- NOTE | 2025-03-21 09:08 | MHC.CM.PN ---
CM MET WITH PT AT BEDSIDE. 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 NO DME/SERVICES. PT DECLINES COMPLETING A HCP WHILE HERE BUT ACCEPTS BLANK COPY TO BRING HOME IN CASE CHANGES HER MIND. PCP DR. RUST, [facility] IN [facility]. DP: PT HAS BEEN MEDICALLY CLEARED FOR DC HOME, NO SERVICES. [facility] WILL TRANSPORT.
--- NOTE | 2025-03-21 09:29 | HO.POSTANES ---
Post Anesthesia Evaluation Post Anesthesia Evaluation Date of Service: 03/21/25 Vital Signs: Vital Signs Temp Pulse Resp BP Pulse Ox O2 Del Method 03/21/25 07:47 97.1 F 80 16 121/68 100 Room Air 03/21/25 03:04 97.7 F 86 16 114/69 98 Room Air 03/20/25 23:32 98.0 F 77 20 119/63 99 Room Air Anesthesia: General Endotracheal-GETA Mental Status: Awake Pain Control: Satisfactory Nausea/Vomiting: None Hydration: Adequate Anesthesia-Related Issues: No Anes. Related Issues
== END 2025-03-21 09:14 | disposition home or self-care (01) ==
LOC: HO.SSS 12:28 → HO.S3 15:02
PROVIDERS: Anesthesiology; Physician Assistant Surgical; PCP Internal Medicine; Visit Provider Surgery
PROC: (CPT 43845; principal; 2025-03-20 10:20)
DX: K21.9 Gastro-esophageal reflux disease without esophagitis (principal); M54.9 Dorsalgia, unspecified; E66.01 Morbid (severe) obesity due to excess calories; Z68.35 Body mass index [BMI] 35.0-35.9, adult; K66.0 Peritoneal adhesions (postprocedural) (postinfection); I10 Essential (primary) hypertension; D64.9 Anemia, unspecified; E51.9 Thiamine deficiency, unspecified; E53.8 Deficiency of other specified B group vitamins; E55.9 Vitamin D deficiency, unspecified; R51.9 Headache, unspecified; M41.9 Scoliosis, unspecified; Z79.899 Other long term (current) drug therapy
CPT/HCPCS: 43775; 43659; 49329; 49659; 36415; 80048; 80053; 80061; 83036; 83525; 84443; 84702; 85014; 85018; 85025; 85610; 85730; 86140; 86850; 86900; 86901; 88304; 88305; 88307; 88342; A4649; C9145; J0131; J0690; J1100; J1171; J1630; J2003; J2250; J2405; J2470; J2704; J2765; J2795; J3010; J7120

== ENCOUNTER → 2025-03-20 07:50 | Outpatient (BNV) | payer OTHER, SELFPAY | PROVIDERS: Visit Provider Surgery | DX: E66.01 Morbid (severe) obesity due to excess calories (principal); E66.812 Obesity, class 2; Z68.35 Body mass index [BMI] 35.0-35.9, adult; Z98.84 Bariatric surgery status; K66.0 Peritoneal adhesions (postprocedural) (postinfection) | CPT/HCPCS: 43659; 43775; 99499 ==

== ENCOUNTER 2025-03-28 13:14 | Outpatient (AMB) | payer OTHER, SELFPAY ==
--- NOTE | 2025-03-28 13:29 | A.OFFVIS_ITS ---
VS Expanded 03/28/25 13:38 BP 123/64 Blood Pressure Location Rt brachial Blood Pressure Position Sitting Pulse 88 Pulse Source Pulse Oximeter Temp 98.0 F Temperature Source Temporal Artery Scan Pulse Oximetry 98 Oxygen Delivery Method Room Air Height 5 ft 1 in Weight 177 lb BMI 33.4 Body Fat % 43.6 Body Fat Mass 77.2 Fat Free Mass 99.6 Visceral Fat Rating 8.0 Body Water % 40.6 Body Water Mass 71.8 Muscle Mass/Score 94.6 Basal Metabolic Rate/Score 1,448 Intake Visit Reasons: (OV) PO LSG 03/20/25 Allergies No Known Allergies Allergy (Verified 03/28/25 13:32) Medication List - Last Reconciled 03/28/25 by DEBORAH Manley iron,carbonyl-vitamin C 65 mg iron- 125 mg (Vitron-C) 1 tab PO DAILY ondansetron 4 mg PO Q12H pantoprazole 40 mg PO DAILY sucralfate 10 mL PO BID HPI Comments Details: Pt is s/p LSG 03/20/2025. Pt is taking 3-4 Premier powdered shakes, 1 scoop each. Hydration is adequate- about 40oz per day. Drinking at pace of 2ml/2min. [facility] Medical History (Updated 03/23/25 @ 00:01 by Dot Caceres) BMI 35.0-35.9,adult BMI 38.0-38.9,adult History of headache Scoliosis Encounter for biopsy Hypertension Back pain GERD (gastroesophageal reflux disease) Surgical History (Updated 03/28/25 @ 13:33 by Sindi Sims CMA) S/P laparoscopic sleeve gastrectomy History of esophagogastroduodenoscopy (EGD) No history of previous surgery Family History Mother No problems noted. Social History Household Members: Significant Other Housing: Apartment Are you a primary rn acute care to a significant other at home: No Do you presently have visiting nurse or other home services: No Alcohol intake: current Alcohol intake frequency: a few times a month Patient Tobacco Use Status: Never used Tobacco Second Hand Smoke Exposure: No service: No Physical Exam Vital Signs: Last Vital Signs Temp 98.0 F 03/28/25 13:38 Pulse 88 06/18/25 13:38 BP 123/64 03/28/25 13:38 Pulse Ox 98 03/28/25 13:38 Oxygen Delivery Method Room Air 03/28/25 13:38 BMI result Body Mass Index 33.4 Const General: cooperative, comfortable and no acute distress Orientation/consciousness: patient oriented x3 GI Other: soft, nontender, nondistended, steri-strips c/d/i Neuro General: patient oriented x3 Assessment & Plan Assessment & Plan (1) S/P laparoscopic sleeve gastrectomy: Code(s): Z98.84 - Bariatric surgery status Category: Surgical (2) Obesity: Code(s): E66.9 - Obesity, unspecified Category: Medical Qualifiers: Obesity type: due to excess calories Obesity classification: adult class 2 (BMI 35 - 39.9) Serious obesity comorbidity presence: with serious comorbidity Body mass index: BMI 38.0-38.9 Qualified Code(s): E66.812 - Obesity, class 2; E66.01 - Morbid (severe) obesity due to excess calories; Z68.38 - Body mass index [BMI] 38.0-38.9, adult Plan May shower tomorrow but no bath or submersion of abdomen in water. May start exercise in 2 days.? No abdominal exercises x 6 weeks. Abdominal binder for the next 2 weeks with activity or exercise. Continue meal plan per Dr Kim until next f/u in 2 weeks. Reviewed pantoprazole and carafate dosing. Reminded of the pace of drinking 2 mL/min or 1oz per 15 min. Will be emailed link for post op video for review.
[2025-03-28 13:38] VITALS: BP 123/64; PULSE 88; TEMP 36.7; O2SAT 98; BMI 33.4
--- OUTSIDE RECORDS SUMMARY | 2025-03-28 15:05 | XMS_ITS | Clinical Summary ---
Author Organization [facility] Address [address] [place] [address] Care Team Providers Care Accounts Receivable Executive Name Role Phone Unavailable Primary Care Provider [...] Description 12/28/2024 1:40 PM EDT Office Visit [facility] [address] [place] [phone] Keshav Todd DDS Pain, dental (Primary Dx) from Last [...] (1 of 3 - 19+ 3-dose series) 7 Cervical Cancer Screening 2019 Pap Smear 2019 [id number] ( - season) 2024 Alcohol and Drug Screen 10/11/2024 Depression Annual Screen 10/11/2024 Imm-Influenza (Season Ended) 2025 Cervical Ablation/Cold-Knife Conization Discontinued Cervical Cryotherapy Discontinued Colposcopy Discontinued Endometrial Biopsy Discontinued Excision/Leep Discontinued HPV Genotyping Discontinued Vaginal Pap Discontinued Vulvoscopy Discontinued Procedures Procedure Name Priority Date/Time Associated Diagnosis Comments 18 EXTRACTION ERU TOOTH RQR REMV BONE &/SECTN TOOTH Routine 12/28/2024 1:40 PM EDT Pain, dental CASE PRESENTATION SUBS DTL & EXTENSIVE TX PLN Routine 12/28/2024 1:40 PM EDT Pain, dental from Last 3 Months Insurance [place] MEDICAID DENTAL
== END 2025-03-28 14:28 | disposition home or self-care (01) ==
LOC: HO.HBS 13:14
PROVIDERS: Visit Provider Physician Assistant Surgical
DX: E66.01 Morbid (severe) obesity due to excess calories (principal); Z68.38 Body mass index [BMI] 38.0-38.9, adult; Z90.3 Acquired absence of stomach [part of]; Z98.84 Bariatric surgery status
CPT/HCPCS: 99024

== ENCOUNTER 2025-03-29 08:34 | Outpatient (AMB) | payer OTHER, SELFPAY ==
--- NOTE | 2025-03-29 08:34 | MHC.WMTHER ---
Intake Intake Visit Reasons: TV PO LSG 03/20/25 Allergies No Known Allergies Allergy (Verified 03/28/25 13:32) PFSH Medical History (Updated 03/23/25 @ 00:01 by Dot Caceres) BMI 35.0-35.9,adult BMI 38.0-38.9,adult History of headache Scoliosis Encounter for biopsy Hypertension Back pain GERD (gastroesophageal reflux disease) Surgical History (Updated 03/28/25 @ 13:33 by Sindi Sims CMA) S/P laparoscopic sleeve gastrectomy History of esophagogastroduodenoscopy (EGD) No history of previous surgery Family History Mother No problems noted. Social History Household Members: Significant Other Housing: Apartment Are you a primary career development coordinator/teacher to a significant other at home: No Do you presently have visiting nurse or other home services: No Alcohol intake: current Alcohol intake frequency: a few times a month Patient Tobacco Use Status: Never used Tobacco Second Hand Smoke Exposure: No service: No Behavioral Health Assessment Weight Management Therapy Therapy Notes Details Subjective: The patient underwent bariatric (weight loss) surgery on 03/20/2025 and reports a smooth recovery. PT denies experiencing any pain and describes his mood as generally positive. Since her school finished on time for her surgery she decided to take 1 month off from work to focus on her recovery and weight-loss journey. PT identifies her boyfriend and her mother as primary sources of support. She denies experiencing hunger and reports adherence to all postoperative instructions. Objective: Patient presented for a postoperative behavioral health appointment via telehealth. Discussed current functioning and recovery status. Provided psychoeducation on the emotional and psychological adjustments commonly experienced following bariatric surgery. Explored progress, goals, and support systems. Emphasized strategies for long-term success, including the importance of ongoing communication with healthcare providers. The PHQ-9 was administered to screen for depressive symptoms. Assessment/Response: Mental Status: Within Normal Limits (WNL) Risk Identified/Reported: None The patient was engaged throughout the session and demonstrated insight and motivation. Mental status exam was unremarkable. PHQ-9 results indicated no current concerns. Food/Weight/Diet Expectations of change Initial goal was to lose 10% of her weight before surgery, which is about 20 lbs. Ultimate weight goal: 188lbs before surgery Initial weight: 208Lbs weight as of 11/22/2024: 196 lbs Weight as of 12/05/2024: 193Lbs . Weight on day of surgery 03/20/2025: 182Lbs PO weight 03/28/2025: 177Lbs PT wants to have bariatric surgery and would like to be at 130 lbs. PT is implementing the following: Current meal plan: 3-4 shakes. 40oz if the e total liquid goal for the day. Exercise plan: Cleared on Wednesday. Using treadmill, walking 1 mile. The goal is to burn 2k chip at week. Questionnaires PHQ-9 Over the last 2 weeks, how often have you been bothered by any of the following problems? 1. Little interest or pleasure in doing things: not at all 2. Feeling down, depressed, or hopeless: not at all 3. Trouble falling or staying asleep, or sleeping too much: not at all 4. Feeling tired or having little energy: several days 5. Poor appetite or overeating: not at all 6. Feeling bad about yourself - or that you are a failure or have let yourself or your family down: not at all 7. Trouble concentrating on things, such as reading the newspaper or watching television: not at all 8. Moving or speaking so slowly that other people could have noticed. Or the opposite - being so fidgety or restless that you have been moving around a lot more than usual: not at all 9. Thoughts that you would be better off or of hurting yourself in some way: not at all Total score: 1 Depression Screening Interpretation: Negative Depression Screening Done: Yes 17210 - PHQ-9 Billing: Yes Source: Developed by Drs. Merrick Suresh, Donya Pike, Johann Levi and colleagues, with an educational marco antonio from [employer]. Assessment & Plan Assessment & Plan (1) Unspecified adjustment reaction: Code(s): F43.20 - Adjustment disorder, unspecified (2) S/P laparoscopic sleeve gastrectomy: Code(s): Z98.84 - Bariatric surgery status Plan The patient is aware of available support resources, including an active Facebook support group and access to behavioral health services as needed. No follow-up visits are necessary at this time. Telehealth Telehealth Telehealth Platform: [facility] Location of provider rendering services: other Location of patient: address on file Patient Identification confirmed using: Name, : Yes Telehealth method: voice only Patient verbally consented to treatment: Yes Patient verbally consented to billing insurance company: Yes Patient informed of any privacy concerns related to visit: Yes Minutes spent on Phone/Video with Pt.: 30 Coding Level of Care Code Established Pt Tele Psytx 30 mins (19715) Patient Type Established Diagnoses Unspecified adjustment reaction F43.20 S/P laparoscopic sleeve gastrectomy Z98.84 Additional Codes PHQ-9 - 37010 - PHQ-9 Billing: Yes ([id number]) Time Spent (min) 30
--- OUTSIDE RECORDS SUMMARY | 2025-03-29 08:54 | XMS_ITS | Clinical Summary ---
Author Organization [facility] Address [address] [place] [address] Care Team Providers Care Clinical Unit Coordinator Name Role Phone Unavailable Primary Care Provider [...] Description 12/28/2024 1:40 PM EDT Office Visit [facility] [address] [place] [phone] Keshav Todd DDS Pain, dental (Primary Dx) [...] Cervical Cancer Screening 2019 Pap Smear 2019 [id number] ( - season) 2024 Alcohol and Drug [...]
== END 2025-03-29 09:06 | disposition home or self-care (01) ==
LOC: HO.HBST 08:34
PROVIDERS: Visit Provider Counselor Mental Health
DX: F43.20 Adjustment disorder, unspecified (principal); Z98.84 Bariatric surgery status
CPT/HCPCS: 98005

== ENCOUNTER 2025-04-26 08:52 | Outpatient (AMB) | payer OTHER, SELFPAY ==
--- NOTE | 2025-04-26 08:20 | MHC.OFFVISWM ---
VS Expanded 04/26/25 08:21 Height 5 ft 1 in Weight 169 lb 9 oz BMI 32.0 Body Fat % 44.6 Body Fat Mass 75.9 Fat Free Mass 94.2 Visceral Fat Rating 9 Body Water % 40.4 Body Water Mass 68.7 Muscle Mass/Score 64.6 Basal Metabolic Rate/Score 1,348 Intake Visit Reasons: TV PO LSG 03/20/25 Store Hand Required: No Allergies No Known Allergies Allergy (Verified 03/28/25 13:32) Medication List - Last Reconciled 04/26/25 by DEBORAH Duncan iron,carbonyl-vitamin C 65 mg iron- 125 mg (Vitron-C) 1 tab PO DAILY pantoprazole 40 mg PO DAILY sucralfate 10 mL PO BID HPI Comments Details: This?a?a 24?yo female who is s/p LSG without hiatal hernia repair on?03/20/2025. Presents for 1 month post op visit. Weight today is 169.9 pounds, with a BMI of 32. There has been a 31.7 pound weight loss,(initial weight 201.6 pounds) since starting the program on 11/13/2024 reflecting a 15.7 % total body weight loss and a weight loss of 15.5 pounds since surgery (operative weight 185.4 pounds) reflecting a 8.3 % TBWL since surgery. No complaints of nausea, emesis, abdominal pain or reflux. Reports infrequent but normal bowel movements every 2-3 days and uses stool softeners regularly. Present meal plan includes: Celebrate rebuild 1 scoop at 9-11 another shake at 12-2 another shake w 2 scoops 6-8 pm Drinking 60 oz water Exercise routine includes: elliptical/treadmill/bike 4 days per week, 430-450 calories walking outside 2 mi when unable to go to the gym [facility] Medical History BMI 35.0-35.9,adult BMI 38.0-38.9,adult History of headache Scoliosis Encounter for biopsy Hypertension Back pain GERD (gastroesophageal reflux disease) Surgical History S/P laparoscopic sleeve gastrectomy History of esophagogastroduodenoscopy (EGD) No history of previous surgery Family History Mother No problems noted. Social History Household Members: Significant Other Housing: Apartment Are you a primary child care sitter to a significant other at home: No Do you presently have visiting nurse or other home services: No Alcohol intake: current Alcohol intake frequency: a few times a month Patient Tobacco Use Status: Never used Tobacco Second Hand Smoke Exposure: No service: No Telehealth Telehealth Telehealth Platform: Telephone Location of provider rendering services: practice address Location of patient: address on file Patient Identification confirmed using: Name, : Yes Telehealth method: voice only Patient verbally consented to treatment: Yes Patient verbally consented to billing insurance company: Yes Patient informed of any privacy concerns related to visit: Yes Minutes spent on Phone/Video with Pt.: 15 Assessment & Plan Assessment & Plan (1) S/P laparoscopic sleeve gastrectomy: Code(s): Z98.84 - Bariatric surgery status Category: Surgical Plan: Overall, patient is doing fairly well. 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 She will communicate with Dr. Christian as she has not done so in 2 weeks so that he may adjust her meal plan. Encouraged her to increase days at the gym to 5 and burn 450 calories per session. Additionally discussed tracking calories while walking outside on the trach, using Simphatic riley. of abdominal pain, nausea, vomiting. No significant constipation. Return to clinic 3-4 weeks
[2025-04-26 08:21] VITALS: BMI 32.0
--- OUTSIDE RECORDS SUMMARY | 2025-04-26 09:09 | XMS_ITS | Clinical Summary ---
Author Organization [facility] Address [address] [place] [address] Care Team Providers Care Activity Specialist Name Role Phone Unavailable Primary Care Provider Unavailabl e Source Comments PLEASE NOTE, if this patient is a minor, it may be UNLAWFUL to discuss sensitive information that is contained in these records (such as FAMILY PLANNING, MENTAL HEALTH or SUBSTANCE ABUSE) with the minor patient's parent or other person without the patient's specific authorization.[facility] Social History Tobacco Use Types Packs/Day Years [...] Cervical Cancer Screening 2019 Pap Smear 2019 [id number] (2023- season) 2024 Alcohol and Drug Screen 10/11/2024 Depression Annual Screen 10/11/2024 Imm-Influenza (#1) 2025 Cervical Ablation/Cold-Knife Conization Discontinued Cervical Cryotherapy Discontinued Colposcopy Discontinued Endometrial Biopsy Discontinued Excision/Leep Discontinued HPV Genotyping Discontinued Vaginal Pap Discontinued Vulvoscopy Discontinued Insurance [place] MED[place]ID DENT[place]
--- OUTSIDE RECORDS SUMMARY | 2025-04-26 09:09 | XMS_ITS | Clinical Summary ---
Author [facility] Address [address] [place] [phone] Care Team Providers Care Deep Tissue Massage Therapist Name Role Phone Unavailable Primary Care Provider [...] Influencers of Health Screening 09/13/2022 COVID-19 Vaccine (1 - 2023-2 5 season) 2024 Influenza Vaccine (#1) 2025 HIB Vaccines Aged Out No longer [...] 5 Years) and At-Risk Patients (6 to 49 Years) Aged Out No longer eligible b ased on patient's age to complete this topic RSV Immunization Patients Un hu 20 months Aged Out No longer eligible b ased on patient's age to complete this topic Varicella Vaccines Aged Out No longer eligible based on patient's age to complete this topic
== END 2025-04-26 09:12 | disposition home or self-care (01) ==
LOC: HO.HBS 08:52
PROVIDERS: Visit Provider Physician Assistant Surgical
DX: Z98.84 Bariatric surgery status (principal)
CPT/HCPCS: 99024